=== PATIENT | male | born 1960 | race Caucasian/White ===

== ENCOUNTER 2021-03-26 15:54 | Emergency (ER) | payer OTHER, SELFPAY ==
--- NOTE | ~2021-03-26 | XR_ITS ---
EXAMINATION: XR lumbar spine 2-3V DATE: 03/26/2021 17:38 INDICATION: Low back pain TECHNIQUE: Anteroposterior and lateral views of the lumbar spine, and cone-down lateral view of the l umbosacral junction were obtained. COMPARISON: 12/30/2014 FINDINGS: There is unchanged mild chronic anterior wedging at T12 and L1. No acute fracture is identi fied. Bone alignment is normal. There is chronic mild loss of intervertebral disc space height at L4- 5 and L5-S1. Small degenerative osteophytes project from the anterior endplates of multiple vertebral bodies. IMPRESSION: 1. Mild lumbar spondylosis without acute findings or significant interval change. Reviewed, dictated and finalized at location F. ECTOR AUTOMATIC TYPEWRITER IMPRESSION: 1. Mild lumbar spondylosis without acute findings or significant interval resendiz eAlessandra
--- NOTE | ~2021-03-26 | XR_ITS ---
EXAMINATION: XR thoracic spine 2V DATE: 03/26/2021 17:38 INDICATION: Back pain TECHNIQUE: AP and lateral views of the thoracic spine are obtained COMPARISON: 07/10/2011, 12/30/2014 FINDINGS: There is unchanged mild loss of vertebral body height at T12 and L1. No acute fracture is i dentified. Bone alignment is normal. There is mild loss of intervertebral disc space height throughou t the thoracic spine. Small degenerative osteophytes project from the anterior endplates of multiple vertebral bodies. IMPRESSION: 1. Mild thoracic spondylosis without acute findings or significant interval change. Reviewed, dictated and finalized at location F. LE DEVELOPER IMPRESSION: 1. Mild thoracic spondylosis without acute findings or significant interval thomas cabrera.
[2021-03-26 16:07] VITALS: BP 162/96; PULSE 88; RESP 16; TEMP 36.2; O2SAT 98
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
[2021-03-26] MEDS: CYCLOBENZAPRINE HCL 10 MG TABLET PO (17:16)
[2021-03-26] MEDS: HYDROcodone/acetaminophen (*CRX) 5-325 MG TABLET 1 TAB PO (17:16)
[2021-03-26 18:20] VITALS: BP 145/77; PULSE 85; RESP 18; TEMP 36.1; O2SAT 98
== END 2021-03-26 18:20 | disposition home or self-care (01) ==
LOC: ANHED 17:25
PROVIDERS: Emergency Provider Emergency Medicine; PCP Physician Assistant
DX: S29.012A Strain of muscle and tendon of back wall of thorax, initial encounter (principal); S32.012A Unstable burst fracture of first lumbar vertebra, initial encounter for closed fracture; M47.814 Spondylosis without myelopathy or radiculopathy, thoracic region; M47.816 Spondylosis without myelopathy or radiculopathy, lumbar region; V43.52XA Car driver injured in collision with other type car in traffic accident, initial encounter
CPT/HCPCS: 72070; 72100; 99283; A9270

== ENCOUNTER 2022-03-28 11:27 | Emergency (ER) | payer OTHER, SELFPAY ==
[2022-03-28 11:29] VITALS: BP 172/104; PULSE 109; RESP 18; TEMP 36.8; O2SAT 99
[2022-03-28] MEDS: HYDROcodone/acetaminophen (*CRX) 5-325 MG TABLET 1 TAB PO (12:45)
--- NOTE | 2022-03-28 12:45 | ED.DENTAL ---
HPI - Dental/Oral General Chief complaint: Dental/Oral Stated complaint: Tooth Abcess Time Seen by Provider: 03/28/22 12:02 History of Present Illness HPI Narrative: Patient is a 61-year-old male who presents ER with right-sided dental pain. Right lower jaw. Began yesterday and worsened this morning when he woke up. No swelling. No difficulty breathing or swallowing. He has increased pain with eating. Located tooth #30 there is fracture. Related Data Allergies Allergy/AdvReac Type Severity Reaction Status Date / Time No Known Allergies Allergy Verified 03/28/22 11:32 Review of Systems Constitutional: Constitutional: Denies chills, Denies fatigue and Denies fever(s) ENT: Denies dysphagia, Denies nasal congestion and Denies sore throat Comments: Dental pain PMFSH Past Medical History Medical History (Updated 03/28/22 @ 12:47 by Jose Roberto John MD) HTN (hypertension) Surgical History Surgical History (Updated 03/28/22 @ 12:46 by Jose Roberto John MD) No pertinent past surgical history Exam Narrative: GENERAL: Well-appearing, well-nourished, and in no acute distress. HEAD: Normocephalic, atraumatic. ENT: Mucous membranes moist. Tender at the base of tooth #30 without any facial swelling or fluctuant abscess noted. Tooth #30 is fractured. NECK: Supple. CHEST: Clear to auscultation. No respiratory distress. HEART: Regular rate and rhythm. No murmur heard. Normal peripheral pulses. EXTREMITIES: Normal range of motion. No edema. NEURO: Alert and oriented x3. PSYCH: Normal mood and affect. Course Course Emergency Course: Patient denies antibiotic allergy. Discharge home with Augmentin and some [place]. Vital Signs Vital signs: Vital Signs Temperature 98.2 F 03/28/22 11:29 Pulse Rate 109 H 03/28/22 11:29 Respiratory Rate 18 03/28/22 11:29 Blood Pressure 172/104 H 03/28/22 11:29 Pulse Oximetry 99 03/28/22 11:29 Oxygen Delivery Room Air 03/28/22 11:29 Temperature 98.2 F 03/28/22 11:29 Pulse Rate 109 H 03/28/22 11:29 Respiratory Rate 18 03/28/22 11:29 Blood Pressure 172/104 H 03/28/22 11:29 Pulse Oximetry 99 03/28/22 11:29 Oxygen Delivery Room Air 03/28/22 11:29 Discharge Plan Discharge Clinical Impression: Toothache Patient Disposition: Home, Self-Care Condition: Stable Instructions: Antibiotic Form, Toothache (ED) Additional Instructions: Find a dentist to follow-up with. Return to the ER if you cannot breathe, you cannot swallow, you have worsening pain/facial swelling. Prescriptions: New hydrocodone-acetaminophen 5-325 mg tablet 1 tablet PO Q6H PRN (Reason: pain) Qty: 8 0RF amoxicillin-pot clavulanate 875-125 mg tablet 1 tablet PO Q12H Qty: 20 0RF No Action cyclobenzaprine 10 mg tablet 10 mg PO TID PRN (Reason: muscle spasm) Qty: 20 0RF cyclobenzaprine 10 mg tablet 10 mg PO TID PRN (Reason: muscle spasm) Qty: 20 0RF Follow-up/Referrals: Umair,COLTON Balderas [Primary Care Provider] -
== END 2022-03-28 13:25 | disposition home or self-care (01) ==
PROVIDERS: Emergency Provider Emergency Medicine; PCP Physician Assistant
DX: K08.89 Other specified disorders of teeth and supporting structures (principal)
CPT/HCPCS: 99283; A9270

== ENCOUNTER 2024-04-26 12:57 | Emergency (ER) | payer OTHER, SELFPAY ==
--- NOTE | ~2024-04-26 | XR_ITS ---
EXAMINATION: XR knee RT min 4V DATE: 04/26/2024 13:27 INDICATION: Anterior right knee pain. Injury. TECHNIQUE: 5 views of right knee were obtained. COMPARISON: None. FINDINGS: Alignment is normal. No fracture. There is mild tricompartmental osteoarthritis. No knee quentin int effusion. IMPRESSION: 1. Mild right knee osteoarthritis. Reviewed, dictated and finalized at location A. MACHINE OPERATOR
--- NOTE | ~2024-04-26 | CT_ITS ---
EXAMINATION: CT knee RT wo con DATE: 04/26/2024 15:57 INDICATION: Anterior right knee pain post fall TECHNIQUE: High resolution computed tomography (CT) of the right knee was performed without intraveno us contrast. Additional sagittal and coronal reconstructions were performed. Automated exposure contr ol and iterative reconstruction technique were employed. The dose-length product was 635.40 mGy-cm. COMPARISON: None FINDINGS: Bone alignment is normal. No fracture. There are subarticular cystlike changes in all 3 compartments along the posterior medial aspect of the lateral tibial plateau, along the posterior weightbearing me dial femoral condyle and along the lateral patellar facet consistent with likely overlying high-grade chondromalacia. No right knee joint effusion. There is mild subcutaneous edema minimal soft tissue s welling anterior and anteromedial to the knee at the level of the patellar tendon. IMPRESSION: 1. No right knee joint effusion or acute osseous abnormality. 2. 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 Reviewed, dictated and finalized at location B. 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 No right knee joint effusion or acute osseous abnormality. 2. Regions of subarticular cystlike changes suggesting overlying high-grade cho ndral malacia in all 3 compartments of the knee.
[2024-04-26 13:14] VITALS: BP 158/84; PULSE 88; RESP 16; TEMP 36.6; O2SAT 98
--- OUTSIDE RECORDS SUMMARY | 2024-04-26 13:57 | XMS_ITS | Patient Health Summary ---
Author Organization [facility] Address [address] [place] [address] Care Team Providers Care Nuclear Powerplant Mechanic Name Role Phone Sary Solis MD Primary Care Provider [phone]- [phone] Note from [facility],non-owned Affiliates and Associated Physician Practices is amultiple site organization consisting of ambulatory clinics and hospital sitesin [place], [place], [place] and [place]. This disclosure is being madepursuant to the Care Everywhere program and may not contain all information available regarding this patient. Last updated 17.[facility] Allergies No known active allergies Medications Be aware that medications may not be up to date on this document. Always verify current medications with the patient. No known medications Social History Tobacco Use Types Packs/Day Years Used Date Smoking Tobacco: Never Smokeless Tobacco: Never Alcohol Use Standard Drinks/Week Comments Yes 0 (1 standard drink = 0.6 oz pur e alcohol) Sex and Gender Information Value Date Recorded Sex Assigned at Not on file Gender Identity Not on file Sexual Orientation Not on file Care Teams Nuclear Powerplant Mechanic Relationship Specialty Start Date End Date Sary Solis MD [address] [place] [id number] PCP - General 10/05/17
--- OUTSIDE RECORDS SUMMARY | 2024-04-26 13:57 | XMS_ITS | Clinical Summary ---
Author Organization [facility] Address [address] [place] [address] Care Team Providers Care Parachute Folder Name Role Phone Sary Solis MD Primary Care Provider [phone]- [phone] Source Comments [facility],non-owned Affiliates and Associated Physician Practices is amultiple site organization consisting of ambulatory clinics and hospital sitesin [place], [place], [place] and [place]. This disclosure is being madepursuant to the Care Everywhere program and may not contain all information available regarding this patient. Last updated 17.[facility] Allergies No known active allergies Medications Be [...] on file Sexual Orientation Not on file Plan of Treatment Health Maintenance Due Date Last Done Comments COLOGUARD (AGES 45-75) - COL ON CA SCREENING 1960 COLON MONITORING 1960 COLONOSCOPY - COLON CA SCREENING 1960 CT COLONOGRAPHY - COLON CA SCREENING 1960 Colorectal Cancer Screening 1960 FIT - COLON CA SCREENING 1960 FLEX SIG - COLON CA SCREENING 1960 LIPID TESTING 1960 HIV SCREENING 1975 HEPATITIS C SCREENING 04/30/1978 DTAP/TDAP/TD VACCINES (1 - Tdap) 1979 PNEUMOCOCCAL VACCINE 50+ (1 of 1 - PCV) 2010 ZOSTER VACCINE (1 of 2) 2010 COVID-19 VACCINE (2023-2 5 season) 2023 INFLUENZA VACCINE (#1) 2023 DEPRESSION SCREENING 03/29/2024 Respiratory Syncytial Virus (RSV) Vaccine Pt: or over 60 yrs (1 - 1-dose 75+ series) 2035 HEPATITIS B VACCINE Aged Out No longe r eligible based on patient's age to complete this topic HIB VACCINE Aged Out No longer eligi ble based on patient's age to complete this topic HPV VACCINE Aged Out No longer eligi ble based on patient's age to complete this topic MENINGOCOCCAL (Group B) VACCINE Aged Out No longer eligible based on patient's age to complete this topic MENINGOCOCCAL VACCINE Aged Out No george tomasa eligible based on patient's age to complete this topic PNEUMOCOCCAL VACCINE Aged Out No long er eligible based on patient's age to complete this topic Care Teams Parachute Folder Relationship Specialty Start Date End Date Sary Solis MD [address] [place] [address] PCP - General 10/05/17
--- OUTSIDE RECORDS SUMMARY | 2024-04-26 13:57 | XMS_ITS | Clinical Summary ---
Author Organization [facility] Address [address] [place] [address]. [place], [place] [id number] [place] [id number] Care Team Providers Care Cofounder Name Role Phone Unavailable Primary Care Provider Unavailabl e Social History Tobacco Use Types Packs/Day Years Used Date Smoking Tobacco: Never Assessed Sex and Gender Information Value Date Recorded Sex Assigned at Not on file Legal Sex Male 6:07 PM CDT Gender Identity Not on file Sexual Orientation Not on file Plan of Treatment Health Maintenance Due Date Last Done Comments Colorectal Cancer Screening Colonoscopy (10 Years) 1960 Annual Physical 1963 Hepatitis C 1978 DTaP, Tdap and Td Vaccines ( 1 - Tdap) 1979 Zoster Vaccines (1 of 2) 2010 COVID-19 Vaccine (2023-2 5 season) 2023 Influenza Adult (#1) 2023 RSV Immunization or 60+ Years (1 - 1-dose 75+ series) 2035 Meningococcal B Vaccine Aged Out No l onger eligible based on patient's age to complete this topic Meningococcal Vaccine Aged Out No george tomasa eligible based on patient's age to complete this topic Pneumococcal Vaccine: Pediat rics (0 to 5 Years) and At-Risk Patients (6 to 64 Years) Aged Out No longer eligible b ased on patient's age to complete this topic RSV Immunizations Under 20 Months Aged Out No longer eligible based on patient's age to complete this topic
--- OUTSIDE RECORDS SUMMARY | 2024-04-26 13:57 | XMS_ITS | Referral Summary ---
Author Organization [facility] [employer] Address [address] [place] [address] Care Team Providers Care Wind Turbine Blade Repair Technician Name Role Phone Sary oSlis MD Primary Care Provider [phone]- [phone] Source Comments [facility],non-owned Affiliates and Associated Physician Practices is amultiple site organization consisting of ambulatory clinics and hospital sitesin [place], [place], [place] and [place]. This disclosure is being madepursuant to the Care Everywhere program and may not contain all information available regarding this patient. Last updated 17.[facility] [employer] Allergies No known active allergies Medications Be [...] Orientation Not on file Plan of Treatment Not on file Care Teams Wind Turbine Blade Repair Technician Relationship Specialty Start Date End Date Sary Solis MD [address] [place] [address] [facility] - General 10/05/17
--- OUTSIDE RECORDS SUMMARY | 2024-04-26 13:57 | XMS_ITS | Referral Summary ---
Author Organization [facility] [address] [facility] Address [address] [place] [address] Care Team Providers Care Certified Endoscopy Technician Name Role Phone Sherrie Block Primary Care Provider [phone] Allergies No known active allergies Medications lisinopril-hydroCHL OROthiazide (ZESTORETIC) 20-25 mg per tabletIndications:E ssential hypertension Take 1 tablet by mouth daily 90 tablet 1 4 Active rosuvastatin (CRESTOR) 20 mg tabletIndications:M ixed hyperlipidemia Take 1 tablet (20 mg total) by mouth daily 90 tablet 1 4 Active amLODIPine (NORVASC) 5 mg tabletIndications:E ssential hypertension Take 1 tablet (5 mg total) by mouth daily 90 tablet 1 4 Active magnesium oxide (MAG-OX) 400 mg (241.3 mg elemental magnesium) tabletIndications:E ssential hypertension,Morbid obesity (HCC) Take 1 tablet (400 mg total) by mouth daily 90 tablet 1 4 Active Active Problems Problem Noted Date Diagnosed Date Medicare [facility] 11/21/2023 Assessment & Plan (11/21/2023 9:37 PM CDT): Encouraged healthy lifestyle, good nutrition and exercise. Encouraged Calcium and Vitamin D and weight bearing exercise for bone health. Reviewed immunizations. Reviewed age appropirate screenings. Medicare Wellness Documentation is completed within the chart EKG done today in the office and it was normal Prostate cancer screening 11/21/2023 Assessment & Plan (11/21/2023 9:36 PM CDT): Check PSA BMI 38.0-38.9,adult 03/11/2023 Assessment & Plan (11/11/2023 7:20 AM CDT): Discussed the patient's BMI. The BMI is above average. BMI management plan is completed. BMI Follow-up includes: nutrition counseling, exercise counseling and education provided. Assessment & Plan (03/11/2023 9:23 AM WOODWINDS TEACHER): Discussed the patient's BMI. The BMI is above average. BMI management plan is completed. BMI Follow-up includes: nutrition counseling, exercise counseling and education provided. Hypomagnesemia 03/11/2023 Assessment & Plan (11/21/2023 9:36 PM CDT): Check labs Assessment & Plan (03/11/2023 11:20 PM WOODWINDS TEACHER): Supplement Hyperglycemia 07/19/2022 Assessment & Plan (11/21/2023 9:35 PM CDT): Pre-diabetes/hyperglycemia is a precursor to Dm. Stressed importance of working on diet (decrease your simple sugars and one carbohydrate with each meal) and increase you exercise to achieve weight loss and this will help prevent you from progressing to diabetes. Check labs Assessment & Plan (03/11/2023 11:19 PM WOODWINDS TEACHER): Check labs Assessment & Plan (07/19/2022 9:45 PM CDT): Pre-diabetes/hyperglycemia is a precursor to Dm. Stressed importance of working on diet (decrease your simple sugars and one carbohydrate with each meal) and increase you exercise to achieve weight loss and this will help prevent you from progressing to diabetes. Morbid obesity 07/16/2022 Assessment & Plan (11/21/2023 9:35 PM CDT): Discussed the patient's BMI. The BMI is above average. BMI management plan is completed. BMI Follow-up includes: nutrition counseling, exercise counseling and education provided. Patient has an obesity-related condition (not limited to: hypertension, obstructive sleep apnea, osteoarthritis, hyperlipidemia, diabetes, etc.). Therefore, morbid obesity may be documented for patients with a BMI between 35.00-39.99. Assessment & Plan (03/11/2023 11:19 PM WOODWINDS TEACHER): Discussed the patient's BMI. The BMI is above average. BMI management plan is completed. BMI Follow-up includes: nutrition counseling, exercise counseling and education provided. Patient has an obesity-related condition (not limited to: hypertension, obstructive sleep apnea, osteoarthritis, hyperlipidemia, diabetes, etc.). Therefore, morbid obesity may be documented for patients with a BMI between 35.00-39.99. Assessment & Plan (07/16/2022 12:08 PM CDT): Discussed the patient's BMI. The BMI is above average. BMI management plan is completed. BMI Follow-up includes: nutrition counseling, exercise counseling and education provided. Mixed hyperlipidemia 03/24/2022 Assessment & Plan (11/21/2023 9:35 PM CDT): Encouraged patient to follow low fat/low chol diet like the Mediterranean diet. Increase good fats in the diet. Increase exercise. Monitor labs as needed. Continue Crestor 20 Assessment & Plan (03/11/2023 11:19 PM WOODWINDS TEACHER): Encouraged patient to follow low fat/low chol diet like the Mediterranean diet. Increase good fats in the diet. Increase exercise. Monitor labs as needed. Continue Crestor Assessment & Plan (07/19/2022 9:45 PM CDT): Encouraged patient to follow low fat/low chol diet like the Mediterranean diet. Increase good fats in the diet. Increase exercise. Monitor labs as needed. Continue Crestor Assessment & Plan (03/24/2022 9:44 PM WOODWINDS TEACHER): Encouraged patient to follow low fat/low chol diet like the Mediterranean diet. Increase good fats in the diet. Increase exercise. Monitor labs as needed. Start crestor. Reviewed risks benefits alternatives side effects and proper use. Will recheck CMP in 4 weeks. Fatigue 11/22/2021 Assessment & Plan (11/21/2023 9:35 PM CDT): Probably multifactorial. Check labs and followup to re-evaluate Assessment & Plan (03/11/2023 11:18 PM WOODWINDS TEACHER): Probably multifactorial. Check labs and followup to re-evaluate Assessment & Plan (07/19/2022 9:45 PM CDT): Probably multifactorial. Check labs and followup to re-evaluate Assessment & Plan (11/22/2021 7:04 PM CDT): Probably multifactorial. Check labs and followup to re-evaluate Essential hypertension 03/15/2019 Assessment & Plan (11/21/2023 9:35 PM CDT): Bp is stable/in acceptable range for any co-morbidities. Encouraged to limit sodium intake and exercise for weight control. Continue lisinopril hydrochlorothiazide 20/25 and amlodipine 5 mg Assessment & Plan (03/11/2023 11:17 PM WOODWINDS TEACHER): Bp is stable/in acceptable range for any co-morbidities. Encouraged to limit sodium intake and exercise for weight control. Continue lisinopril hydrochlorothiazide 20/25 amlodipine Assessment & Plan (07/19/2022 9:45 PM CDT): Bp is stable/in acceptable range for any co-morbidities. Encouraged to limit sodium intake and exercise for weight control. Continue lisinopril hydrochlorothiazide and amlodipine Assessment & Plan (03/24/2022 9:33 PM WOODWINDS TEACHER): Bp is stable/in acceptable range for any co-morbidities. Encouraged to limit sodium intake and exercise for weight control. Continue lisinopril hydrochlorothiazide 2024 in the a.m. amlodipine 5 mg in the p.m. Assessment & Plan (11/22/2021 7:02 PM CDT): BP is not controlled. Stressed importance of taking medications as prescribed. He is currently on lisinopril hydrochlorothiazide He states his home readings have always been high also. Will go ahead and add amlodipine 5 mg. He needs to get labs done. Encouraged to limit sodium intake and exercise for weight control. Follow-up in 2 weeks to reassess blood pressure. Reviewed signs and symptoms of stroke and heart attack as he runs high often. If this would occur he needs to immediately seek emergency care. He voices understanding. Assessment & Plan (02/23/2021 9:41 PM WOODWINDS TEACHER): Bp is stable/in acceptable range for any co-morbidities. Encouraged to limit sodium intake and exercise for weight control. Continue lisinopril and hydrochlorothiazide at 20/25 blood pressures upper end of normal. Encouraged to keep readings at home to monitor also. Assessment & Plan (11/22/2019 2:14 PM CDT): Bp is stable/in acceptable range for any co-morbidities. Encouraged to limit sodium intake and exercise for weight control. Continue lisinopril/HCTZ. Encouraged to followup 4 weeks to recheck for stability Assessment & Plan (03/26/2019 10:40 PM WOODWINDS TEACHER): Bp is uncontrolled. Discussed treatment options. Will start with lisinopril/HCTZ. Will need for him to get labs. Provided a location for [place] pay only. Encouraged to limit sodium intake and exercise for weight control. Resolved Problems Problem Noted Date Diagnosed Date Resolved Date Morbid obesity with BMI of 40.0-44.9, adult 03/11/2023 03/11/2023 BMI 40.0-44.9, adult 07/16/2022 023 Assessment & Plan (07/16/2022 12:08 PM CDT): Discussed the patient's BMI. The BMI is above average. BMI management plan is completed. BMI Follow-up includes: nutrition counseling, exercise counseling and education provided. ARDON (dyspnea on exertion) 05/05/2022 Abnormal EKG 05/05/2022 11/21/2023 Racing heart beat 03/24/2022 11/21/2023 Assessment & Plan (03/24/2022 9:36 PM WOODWINDS TEACHER): This is a significant, separately identifiable problem that was evaluated and managed on the same day as the wellness exam Racing heartbeat noted while trying to donate plasma. EKG in the office today revealed prolonged QT interval, otherwise essentially normal. Will plan referral to Cardiology. See prolonged QT interval Prolonged Q-T interval on ECG 03/10/2022 11/21/2023 Assessment & Plan (03/24/2022 9:35 PM WOODWINDS TEACHER): This is a significant, separately identifiable problem that was evaluated and managed on the same day as the wellness exam Prolonged QT interval noted on EKG. Patient noted increased heart rate while donating plasma. He has multiple risk factors including family history of coronary artery disease, obesity, hypertension, hyperlipidemia so recommend referral to Cardiology Reviewed with patient if he would have chest pain shortness a breath exertional symptoms or a syncopal event he is he is to immediately go to the ER for immediate evaluation. He verbalizes understanding and agrees with the plan. Diabetes mellitus screening 11/22/2021 03/24/2022 Assessment & Plan (11/22/2021 7:04 PM CDT): Check labs Colon cancer screening 11/22/202103/24 Assessment & Plan (11/22/2021 7:05 PM CDT): Patient has refused colon screening in the past. Discussed options today including colonoscopy versus Cologuard. Reviewed risks and benefits of both. Cologuard preferred. Order placed today BMI 40.0-44.9, adult 02/04/2021 021 Assessment & Plan (02/04/2021 10:10 AM WOODWINDS TEACHER): Obesity is unchanged. Discussed the patient's BMI. The BMI is above average. BMI management plan is completed. BMI Follow-up includes: nutrition counseling, exercise counseling and education provided. Morbid obesity with BMI of 40.0-44.9, adult 02/04/2021 07/16/2022 Assessment & Plan (03/24/2022 9:34 PM WOODWINDS TEACHER): Discussed the patient's BMI. The BMI is above average. BMI management plan is completed. BMI Follow-up includes: nutrition counseling, exercise counseling and education provided. Assessment & Plan (11/22/2021 7:03 PM CDT): Discussed the patient's BMI. The BMI is above average. BMI management plan is completed. BMI Follow-up includes: nutrition counseling, exercise counseling and education provided. Assessment & Plan (02/23/2021 9:42 PM WOODWINDS TEACHER): Obesity is unchanged. Discussed the patient's BMI. The BMI is above average. BMI management plan is completed. BMI Follow-up includes: nutrition counseling, exercise counseling and education provided. Annual physical exam 11/22/2019 Assessment & Plan (03/11/2023 11:16 PM WOODWINDS TEACHER): Encouraged healthy lifestyle, good nutrition and exercise. Encouraged Calcium and Vitamin D and weight bearing exercise for bone health. Reviewed immunizations Reviewed age appropirate screenings. Assessment & Plan (03/24/2022 9:34 PM WOODWINDS TEACHER): Encouraged healthy lifestyle, good nutrition and exercise. Encouraged Calcium and Vitamin D and weight bearing exercise for bone health. Reviewed immunizations Reviewed age appropirate screenings. Assessment & Plan (02/23/2021 9:41 PM WOODWINDS TEACHER): Encouraged healthy lifestyle, good nutrition and exercise. Encouraged Calcium and Vitamin D and weight bearing exercise for bone health. Reviewed immunizations Reviewed age appropirate screenings. Assessment & Plan (11/22/2019 2:14 PM CDT): Encouraged healthy lifestyle, good nutrition and exercise. Encouraged Calcium and Vitamin D and weight bearing exercise for bone health. Reviewed immunizations Reviewed age appropirate screenings. Need for Tdap vaccination 11/22/2019 Assessment & Plan (11/22/2019 2:14 PM CDT): Updated in office today Prostate cancer screening 11/22/2019 Assessment & Plan (11/22/2021 7:03 PM CDT): Check labs Assessment & Plan (11/22/2019 2:14 PM CDT): Check labs Colon cancer screening declined 11/22/2019 11/22/2021 Assessment & Plan (11/22/2021 7:03 PM CDT): Patient refuses colon cancer screening Assessment & Plan (02/23/2021 9:42 PM WOODWINDS TEACHER): Patient denies colon cancer screening. Reviewed importance of screening. Pt voiced understanding. Assessment & Plan (11/22/2019 2:15 PM CDT): Reviewed importance of screening. Pt voiced understanding. Diabetes mellitus screening 03/26/2019 02/04/2021 Assessment & Plan (11/22/2019 2:14 PM CDT): Check labs Assessment & Plan (03/26/2019 10:41 PM WOODWINDS TEACHER): Check labs Lipid screening 03/26/2019 03/24/2022 Assessment & Plan (11/22/2021 7:03 PM CDT): Check labs Assessment & Plan (11/22/2019 2:14 PM CDT): Check labs Assessment & Plan (03/26/2019 10:41 PM WOODWINDS TEACHER): Check labs BMI 40.0-44.9, adult 03/15/2019 021 Assessment & Plan (11/22/2019 2:14 PM CDT): Obesity is unchanged. Discussed the patient's BMI. The BMI is above average. BMI management plan is completed. BMI Follow-up includes: nutrition counseling, exercise counseling and education provided. Assessment & Plan (03/15/2019 2:31 PM WOODWINDS TEACHER): Obesity is unchanged. Discussed the patient's BMI. The BMI is above average. BMI management plan is completed. BMI Follow-up includes: nutrition counseling, exercise counseling and education provided. Morbid obesity (CMS/HCC) 03/15/201911/2020 Assessment & Plan (02/04/2021 10:10 AM WOODWINDS TEACHER): Obesity is unchanged. Discussed the patient's BMI. The BMI is above average. BMI management plan is completed. BMI Follow-up includes: nutrition counseling, exercise counseling and education provided. Assessment & Plan (11/22/2019 2:14 PM CDT): Obesity is unchanged. Discussed the patient's BMI. The BMI is above average. BMI management plan is completed. BMI Follow-up includes: nutrition counseling, exercise counseling and education provided. Assessment & Plan (03/15/2019 2:31 PM WOODWINDS TEACHER): Obesity is unchanged. Discussed the patient's BMI. The BMI is above average. BMI management plan is completed. BMI Follow-up includes: nutrition counseling, exercise counseling and education provided. Body mass index (BMI) 40.0-44.9, adult 07/26/2017 07/16/2022 Morbid obesity 07/26/2017 07/16/2022 Immunizations Name Administration Dates Next Due Influenza, Trivalent, Preser vative Free, Intramuscular 01/04/2024 Influenza, Unspecified 12/28/2022,2021(Deferred: Patient Refused),03/10/2022(Deferred: Patient Refused),12/29/2021,04/30/2021(Deferre d: Patient Refused),03/15/2019(Deferred: Patient Refused),12/27/2017(Deferred: Patient Refused) Tdap 11/22/2019 Social History Tobacco Use Types Packs/Day Years Used Date Smoking Tobacco: Never Smokeless Tobacco: Never Tobacco Cessation:Counseling Given: Not Answered Alcohol Use Standard Drinks/Week Comments Yes 0 (1 standard drink = 0.6 oz pur e alcohol) AUDIT-C Answer Date Recorded Q1: How often do you have a drink containing alc ohol? 2-3 times a week 07/16/2022 Q2: How many drinks containi ng alcohol do you have on a typical day when you are drinking? 3 or 4 07/16/2022 Q3: How often do you have si x or more drinks on one occasion? 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 Not on file Not on file Not on file Last Filed Vital Signs Vital Sign Reading Time Taken Comments Blood Pressure 138/98 11/11/2023 7:15 AM CDT Pulse 86 11/11/2023 7:15 AM CDT Temperature 36.4 ??C (97.6 ??F) 11/11/2023 7:15 AM CD T Respiratory Rate 16 03/10/2022 11:2 3 AM WOODWINDS TEACHER Oxygen Saturation 96% 11/11/2023 7:15 AM CDT Inhaled Oxygen Concentration - - Weight 121.2 kg (267 lb 4.8 oz) 11/11/2023 7:15 AM CDT Height 177.8 cm (5' 10 ) 11/11/2023 7:15 AM CDT Body Mass Index 38.35 11/11/2023 7:15 AM CDT Plan of Treatment Not on file Procedures Procedure Name Priority Date/Time Associated Diagnosis Comments PSA SCREEN Routine 11/27/2021 7:46 AM CDT Prostate cancer screening STOOL DNA ? COLOGUARD Routine 11/18/2021 8:13 AM CDT Colon cancer screening HEPATITIS PANEL, ACUTE Routine 07/26/2017 8:01 AM CDT from Last 3 Months or Most Recently Relevant to Health Maintenance Results * PSA screen (11/27/2021 7:46 AM CDT) PSA 0.25 < OR = 4.00 ng/mL [employer] Comment: The total PSA value from this assay system is standardized against the WHO standard. The test result will be approximately 20% lower when compared to the equimolar-standardized total PSA (Tessy Phillip). Comparison of serial PSA results should be interpreted with this fact in mind. This test was performed using the Siemens chemiluminescent method. Values obtained from different assay methods cannot be used interchangeably. PSA levels, regardless of value, should not be interpreted as absolute evidence of the presence or absence of disease. Blood specimen (specimen) 11/27/2021 7:46 AM CDT 11/27/2021 7:48 AM CDT Sherrie SEGURA LAB BLOOD ORDERABLES Final Result [facility] [address] [place] [address] * Stool DNA - Cologuard (11/18/2021 8:13 AM CDT) Pathologist [facility] Stool DNA - Cologuard Negative Negative [email or web address] (CLIA #:[id number]) Comment: NEGATIVE TEST RESULT. A negative Cologuard result indicates a low likelihood that a colorectal cancer (CRC) or advanced adenoma (adenomatous polyps with more advanced pre-malignant features) ??is present. The chance that a person with a negative Cologuard test has a colorectal cancer is less than 1 in 1500 (negative predictive value >99.9%) or has an ??advanced adenoma is less than ??5.3% (negative predictive value 94.7%). These data are based on a prospective cross-sectional study of 10,000 individuals at average risk for colorectal cancer who were screened with both Cologuard and colonoscopy. (Belinda Hendricks al, N Engl J Med 2014;370(14):1286- 1297) The normal value (reference range) for this assay is negative. COLOGUARD RE-SCREENING RECOMMENDATION: Periodic colorectal cancer screening is an important part of preventive healthcare for asymptomatic individuals at average risk for colorectal cancer. ??Following a negative Cologuard result, the [place] [employer] Society and U.S. Multi-Society Task Force screening guidelines recommend a Cologuard re-screening interval of 3 years. References: [place] [employer] Guideline for Colorectal Cancer Screening: https://www.cancer.org/cancer/lndgi-huggvl-xzrkel/yulvdzdma-crxoqilim-mnjfoaa/ac s-rec ommendations.html.; Fernando DK, Mayuri CR, Darius TorresK, Colorectal Cancer Screening: Recommendations for Physicians and Patients from the U.S. Multi-Society Task Force on Colorectal Cancer Screening , Am J Gastroenterology 2017; 112:1154-9750. TEST DESCRIPTION: Composite algorithmic analysis of stool DNA-biomarkers with hemoglobin immunoassay. ?? Quantitative values of individual biomarkers are not reportable and are not associated with individual biomarker result reference ranges. Cologuard is intended for colorectal cancer screening of adults of either sex, 45 years or older, who are at average-risk for colorectal cancer (CRC). Cologuard has been approved for use by the U.S. FDA. The performance of Cologuard was established in a cross sectional study of average-risk adults aged 50-84. Cologuard performance in patients ages 45 to 49 years was estimated by sub-group analysis of near-age groups. Colonoscopies performed for a positive result may find as the most clinically significant lesion: colorectal cancer [4.0%], advanced adenoma (including sessile serrated polyps greater than or equal to 1cm diameter) [20%] or non- advanced adenoma [31%]; or no colorectal neoplasia [45%]. These estimates are derived from a prospective cross-sectional screening study of 10,000 individuals at average risk for colorectal cancer who were screened with both Cologuard and colonoscopy. (Belinda Hendricks al, N Engl J Med 2014;370(14):7146-5027.) Cologuard may produce a false negative or false positive result (no colorectal cancer or precancerous polyp present at colonoscopy follow up). A negative Cologuard test result does not guarantee the absence of CRC or advanced adenoma (pre-cancer). The current Cologuard screening interval is every 3 years. ([place] [employer] Society and U.S. Multi-Society Task Force). Cologuard performance data in a 10,000 patient pivotal study using colonoscopy as the reference method can be accessed at the following location: www.CaseReader.com/results. Additional description of the Cologuard test process, warnings and precautions can be found at www.[employer]. Stool 11/18/2021 8:13 AM CDT 11/19/2021 4:05 PM CDT us Sherrie SEGURA LAB BODY FLUIDS AND STOOLS ORDERABLES Final Result Performing Organization Address [facility] Co de Phone Number [facility] (CLIA #:[id number]) [place] [address] * Hepatitis panel, acute (07/26/2017 8:01 AM CDT) Hep A IgM NON-REACTI VE NON-REACTI VE [facility] HISTORICAL RESULTS HepBsAg NON-REACTI VE NON-REACTI VE [facility] HISTORICAL RESULTS Hep B core IgM NON-REACTI VE NON-REACTI VE [facility] HISTORICAL RESULTS Hep C Ab NON-REACTI VE NON-REACTI VE [facility] HISTORICAL RESULTS SIGNAL TO CUT-OFF 0.07 <1.00 [facility] HISTORICAL RESULTS 07/26/2017 8:01 AM CDT 07/27/2017 11:00 AM CDT Narrative [facility] HISTORICAL RESULTS - 07/27/2017 10:37 AM CDT 0; 0; 0 FASTING:YES FASTING: YES PERFORMING LAB: [place], [facility] [address] [address] [id number] Ulises Meyers D.O., MPH us Ousmane Solis MD LAB MICROBIOLOGY - GE NERAL ORDERABLES Final Result Performing Organization Address [facility] Co de Phone Number [facility] HISTORICAL RESULTS from Last 3 Months or Most Recently Relevant to Health Maintenance Insurance [facility] [employer] PPO Care Teams Certified Endoscopy Technician Relationship Specialty Start Date End Date Sherrie Block PA [facility] [phone] PCP - General Internal Medicine 03/08/19
--- OUTSIDE RECORDS SUMMARY | 2024-04-26 13:57 | XMS_ITS | Clinical Summary ---
Author Organization [facility] Address [address] [place] [address] Care Team Providers Care Supervisor Electronic Coils Name Role Phone Sherrie Block Primary Care Provider [phone] Allergies No known active allergies Medications lisinopril-hydroCHL [...] Problems Problem Noted Date Diagnosed Date [facility] 11/21/2023 Assessment & Plan (11/21/2023 [...] provided. Assessment & Plan (03/11/2023 9:23 AM CARPENTER [employer]YPE): Discussed the patient's BMI. The BMI is above average. BMI management plan is completed. BMI Follow-up includes: nutrition counseling, exercise counseling and education provided. Hypomagnesemia 03/11/2023 Assessment & Plan (11/21/2023 9:36 PM CDT): Check labs Assessment & Plan (03/11/2023 11:20 PM CARPENTER PROTOTYPE): Supplement Hyperglycemia 07/19/2022 Assessment & Plan (11/21/2023 9:35 PM CDT): Pre-diabetes/hyperglycemia is a precursor to Dm. Stressed importance of working on diet (decrease your simple sugars and one carbohydrate with each meal) and increase you exercise to achieve weight loss and this will help prevent you from progressing to diabetes. Check labs Assessment & Plan (03/11/2023 11:19 PM CARPENTER PROTOTYPE): Check labs Assessment & Plan (07/19/2022 9:45 [...] 35.00-39.99. Assessment & Plan (03/11/2023 11:19 PM CARPENTER PROTOTYPE): Discussed the patient's BMI. The BMI is [...] 20 Assessment & Plan (03/11/2023 11:19 PM CARPENTER PROTOTYPE): Encouraged patient to follow low fat/low chol [...] Crestor Assessment & Plan (03/24/2022 9:44 PM CARPENTER PROTOTYPE): Encouraged patient to follow low fat/low chol [...] re-evaluate Assessment & Plan (03/11/2023 11:18 PM CARPENTER PROTOTYPE): Probably multifactorial. Check labs and followup to [...] mg Assessment & Plan (03/11/2023 11:17 PM CARPENTER PROTOTYPE): Bp is stable/in acceptable range for any co-morbidities. Encouraged to limit sodium intake and exercise for weight control. Continue lisinopril hydrochlorothiazide 20/25 amlodipine Assessment & Plan (07/19/2022 9:45 PM CDT): Bp is stable/in acceptable range for any co-morbidities. Encouraged to limit sodium intake and exercise for weight control. Continue lisinopril hydrochlorothiazide and amlodipine Assessment & Plan (03/24/2022 9:33 PM CARPENTER PROTOTYPE): Bp is stable/in acceptable range for any [...] understanding. Assessment & Plan (02/23/2021 9:41 PM CARPENTER PROTOTYPE): Bp is stable/in acceptable range for any [...] stability Assessment & Plan (03/26/2019 10:40 PM CARPENTER PROTOTYPE): Bp is uncontrolled. Discussed treatment options. Will [...] 11/21/2023 Assessment & Plan (03/24/2022 9:36 PM CARPENTER PROTOTYPE): This is a significant, separately identifiable problem that was evaluated and managed on the same day as the wellness exam Racing heartbeat noted while trying to donate plasma. EKG in the office today revealed prolonged QT interval, otherwise essentially normal. Will plan referral to Cardiology. See prolonged QT interval Prolonged Q-T interval on ECG 03/10/2022 11/21/2023 Assessment & Plan (03/24/2022 9:35 PM CARPENTER PROTOTYPE): This is a significant, separately identifiable problem [...] 021 Assessment & Plan (02/04/2021 10:10 AM CARPENTER PROTOTYPE): Obesity is unchanged. Discussed the patient's BMI. The BMI is above average. BMI management plan is completed. BMI Follow-up includes: nutrition counseling, exercise counseling and education provided. Morbid obesity with BMI of 40.0-44.9, adult 02/04/2021 07/16/2022 Assessment & Plan (03/24/2022 9:34 PM CARPENTER PROTOTYPE): Discussed the patient's BMI. The BMI is above average. BMI management plan is completed. BMI Follow-up includes: nutrition counseling, exercise counseling and education provided. Assessment & Plan (11/22/2021 7:03 PM CDT): Discussed the patient's BMI. The BMI is above average. BMI management plan is completed. BMI Follow-up includes: nutrition counseling, exercise counseling and education provided. Assessment & Plan (02/23/2021 9:42 PM CARPENTER PROTOTYPE): Obesity is unchanged. Discussed the patient's BMI. The BMI is above average. BMI management plan is completed. BMI Follow-up includes: nutrition counseling, exercise counseling and education provided. Annual physical exam 11/22/2019 Assessment & Plan (03/11/2023 11:16 PM CARPENTER PROTOTYPE): Encouraged healthy lifestyle, good nutrition and exercise. Encouraged Calcium and Vitamin D and weight bearing exercise for bone health. Reviewed immunizations Reviewed age appropirate screenings. Assessment & Plan (03/24/2022 9:34 PM CARPENTER PROTOTYPE): Encouraged healthy lifestyle, good nutrition and exercise. Encouraged Calcium and Vitamin D and weight bearing exercise for bone health. Reviewed immunizations Reviewed age appropirate screenings. Assessment & Plan (02/23/2021 9:41 PM CARPENTER PROTOTYPE): Encouraged healthy lifestyle, good nutrition and exercise. [...] screening Assessment & Plan (02/23/2021 9:42 PM CARPENTER PROTOTYPE): Patient denies colon cancer screening. Reviewed importance of screening. Pt voiced understanding. Assessment & Plan (11/22/2019 2:15 PM CDT): Reviewed importance of screening. Pt voiced understanding. Diabetes mellitus screening 03/26/2019 02/04/2021 Assessment & Plan (11/22/2019 2:14 PM CDT): Check labs Assessment & Plan (03/26/2019 10:41 PM CARPENTER PROTOTYPE): Check labs Lipid screening 03/26/2019 03/24/2022 Assessment & Plan (11/22/2021 7:03 PM CDT): Check labs Assessment & Plan (11/22/2019 2:14 PM CDT): Check labs Assessment & Plan (03/26/2019 10:41 PM CARPENTER PROTOTYPE): Check labs BMI 40.0-44.9, adult 03/15/2019 021 Assessment & Plan (11/22/2019 2:14 PM CDT): Obesity is unchanged. Discussed the patient's BMI. The BMI is above average. BMI management plan is completed. BMI Follow-up includes: nutrition counseling, exercise counseling and education provided. Assessment & Plan (03/15/2019 2:31 PM CARPENTER PROTOTYPE): Obesity is unchanged. Discussed the patient's BMI. The BMI is above average. BMI management plan is completed. BMI Follow-up includes: nutrition counseling, exercise counseling and education provided. Morbid obesity (CMS/HCC) 03/15/201911/2020 Assessment & Plan (02/04/2021 10:10 AM CARPENTER PROTOTYPE): Obesity is unchanged. Discussed the patient's BMI. [...] provided. Assessment & Plan (03/15/2019 2:31 PM CARPENTER PROTOTYPE): Obesity is unchanged. Discussed the patient's BMI. [...] Refused),03/15/2019(Deferred: Patient Refused),12/27/2017(Deferred: Patient Refused) Tdap 11/22/2019 Surgical History Surgery Date Site/Laterality Comments DISCECTOMY DISCECTOMY 03/29/1996 - 03/28/1997 Medical History Medical History Date Comments Hypertension Ruptured disc, cervical Family History Medical History Relation Name Comments Heart disease Father Hyperlipidemia Father Stroke Father COPD Mother Relation Name Status Comments Father Mother Social History Tobacco Use Types Packs/Day Years [...] on file Legal Sex Male 6:42 PM CARPENTER PROTOTYPE Gender Identity Not on file Sexual Orientation Not on file Occupation Industry Job Start Date Job End Date [employer] Not on file Not on file Not on file retired Not on file Not on file Not on file Obstetrics History Last Filed Vital Signs Vital Sign Reading Time Taken Comments Blood Pressure 138/98 11/11/2023 7:15 AM CDT Pulse 86 11/11/2023 7:15 AM CDT Temperature 36.4 ??C (97.6 ??F) 11/11/2023 7:15 AM CD T Respiratory Rate 16 03/10/2022 11:2 3 AM CARPENTER PROTOTYPE Oxygen Saturation 96% 11/11/2023 7:15 AM CDT Inhaled Oxygen Concentration - - Weight 121.2 kg (267 lb 4.8 oz) 11/11/2023 7:15 AM CDT Height 177.8 cm (5' 10 ) 11/11/2023 7:15 AM CDT Body Mass Index 38.35 11/11/2023 7:15 AM CDT Plan of Treatment Health Maintenance Due Date Last Done Comments Hepatitis B Screening 1978 Zoster Vaccine (1 of 2) 2010 Prostate Cancer Screening-PSA 11/28/2023 11/27/2021 Depression Screening 11/10/2024 11/11/2023, 03/11/2023, 07/16/2022, Additional history exists Regular Well Visit/Exam 18-64 11/10/2024 11/11/2023, 03/11/2023, 03/10/2022, Additional history exists Colon Cancer Screening-DNA Stool 11/18/2024 11/18/2021 DTaP/Tdap/Td Vaccine (2 - Td or Tdap) 11/21/2029 11/22/2019 Hepatitis C Screening Completed 07/26/2017 Colon Cancer Screening-FIT Discontinued 11/18/2021 Influenza Vaccine Completed 01/04/2024, , 12/28/2022, Additional history exists Pneumococcal vaccine <65 Aged Out No longer eligible based on patient's age to complete this topic Procedures Procedure Name Priority Date/Time Associated Diagnosis [...] PSA 0.25 < OR = 4.00 ng/mL [employer] Comment: The total PSA value from this assay system is standardized against the WHO standard. The test result will be approximately 20% lower when compared to the equimolar-standardized total PSA (Tessy [place]). Comparison of serial PSA results should be interpreted with this fact in mind. This test was performed using the Siemens chemiluminescent method. Values obtained from different assay methods cannot be used interchangeably. PSA levels, regardless of value, should not be interpreted as absolute evidence of the presence or absence of disease. Blood specimen (specimen) 11/27/2021 7:46 AM CDT 11/27/2021 7:48 AM CDT us Sherrie SEGURA LAB BLOOD ORDERABLES Final Result [facility] [employer] [address] [id number] * Stool DNA - Cologuard (11/18/2021 8:13 AM CDT) Stool DNA - Cologuard Negative Negative [employer] (CLIA #:[id number]) Comment: NEGATIVE TEST RESULT. A negative Cologuard [...] screened with both Cologuard and colonoscopy. (Belinda Corey et al, N Engl J Med 2014;370(14):1286- 1297) The normal value (reference range) for this assay is negative. COLOGUARD RE-SCREENING RECOMMENDATION: Periodic colorectal cancer screening is an important part of preventive healthcare for asymptomatic individuals at average risk for colorectal cancer. ??Following a negative Cologuard result, the [place] Cancer Society and U.S. Multi-Society Task Force screening guidelines recommend a Cologuard re-screening interval of 3 years. References: [place] Cancer Society Guideline for Colorectal Cancer Screening: https://www.cancer.org/cancer/hotrb-hzoibn-hfoiek/nxmslertr-rmpvjknej-wtxmeso/ac s-rec ommendations.html.; Fernando VALLECILLO, Mayuri CR, Darius TorresK, Colorectal Cancer Screening: Recommendations for Physicians and Patients from the U.S. Multi-Society Task Force on Colorectal Cancer Screening , Am J Gastroenterology 2017; 112:9859-6137. TEST DESCRIPTION: Composite algorithmic analysis of stool [...] screened with both Cologuard and colonoscopy. (Belinda Corey et al, N Engl J Med 2014;370(14):9432-4060.) Cologuard may produce a false negative or false positive result (no colorectal cancer or precancerous polyp present at colonoscopy follow up). A negative Cologuard test result does not guarantee the absence of CRC or advanced adenoma (pre-cancer). The current Cologuard screening interval is every 3 years. ([place] Cancer Society and U.S. Multi-Society Task Force). Cologuard performance data in a 10,000 patient pivotal study using colonoscopy as the reference method can be accessed at the following location: www.Teamer.net/results. Additional description of the Cologuard test process, warnings and precautions can be found at www.cologuard.com. Stool 11/18/2021 8:13 AM CDT 11/19/2021 4:05 PM CDT us Sherrie SEGURA LAB BODY FLUIDS AND STOOLS ORDERABLES Final Result [employer] (CLIA #:[id number]) [address] [place] [address] * Hepatitis panel, acute (07/26/2017 8:01 AM CDT) Hep A IgM NON-REACTI VE NON-REACTI VE [facility] HISTORICAL RESULTS HepBsAg NON-REACTI VE [facility] Hep B core IgM NON-REACTI VE NON-REACTI VE [facility] HISTORICAL RESULTS Hep C Ab NON-REACTI VE NON-REACTI VE [facility] HISTORICAL RESULTS SIGNAL TO CUT-OFF 0.07 <[address] [facility] HISTORICAL RESULTS 07/26/2017 8:01 AM CDT 07/27/2017 11:00 AM CDT Narrative [facility] HISTORICAL RESULTS - 07/27/2017 10:37 AM CDT 0; 0; 0 FASTING:YES FASTING: YES PERFORMING LAB: [place], [facility] [address], [place] [address] Ulises Meyers D.O., MPH Ousmane Solis MD LAB MICROBIOLOGY - GE NERAL ORDERABLES Final Result [facility] HISTORICAL RESULTS from Last 3 Months or Most Recently Relevant to Health Maintenance Insurance [facility] [employer] PPO Care Teams Supervisor Electronic Coils Relationship Specialty Start Date End Date Sherrie Block PA [address] [facility] [address] [place] [address] PCP - General Internal Medicine 03/08/19
--- NOTE | 2024-04-26 15:27 | ED_ITS ---
HPI - General Adult General Chief complaint: Extremity Injury, Lower Stated complaint: fall, right knee injury Time Seen by Provider: 04/26/24 14:11 History of Present Illness HPI narrative: 63-year-old male presents to the emergency department for evaluation for right knee pain. Patient reports last week he went to the on the ground and suspects that he kneeled to quickly and injured his right knee. Patient states with palpation and with weight-bearing he has pain that radiates from medial right knee to lateral posterior knee. Patient denies any other pain or injury Related Data Allergies Allergy/AdvReac Type Severity Reaction Status Date / Time No Known Allergies Allergy Verified 03/28/22 11:32 Review of Systems Review of Systems: All systems reviewed & are unremarkable except as noted in HPI and below PMFSH Past Medical History Medical History (Updated 04/26/24 @ 16:44 by Nuno Barriga MD) HTN (hypertension) Surgical History Surgical History (Updated 03/28/22 @ 12:46 by Jose Roberto John MD) No pertinent past surgical history Exam Narrative: APPEARANCE: Well appearing, no pain, no distress, well-nourished. HEAD: normocephalic, atraumatic. EYES: PERRLA/EOMI, conjunctivae clear. NOSE: Normal no drainage EARS:TMS clear with good light reflex. THROAT: Pharynx clear, no exudate. NECK: Supple. No adenopathy, no masses. RESPIRATORY: Airway patent, respirations nonlabored. Clear to auscultation bilaterally, no rales, rhonchi, wheezing. CARDIOVASCULAR: Regular rate and rhythm without murmurs rubs or gallops. ABDOMINAL: Soft, nontender, nondistended, normal bowel sounds MUSCULOSKELETAL: Right knee tenderness to palpation and pain with ambulation NEURO: Alert. Cranial nerves II through XII intact. Grossly intact SKIN: Warm, dry. Normal Color Course Vital Signs Vital signs: Vital Signs Temperature 97.8 F 04/26/24 13:14 Pulse Rate 88 04/26/24 13:14 Respiratory Rate 16 04/26/24 13:14 Blood Pressure 158/84 H 04/26/24 13:14 Pulse Oximetry 98 04/26/24 13:14 Temperature 97.8 F 04/26/24 13:14 Pulse Rate 75 04/26/24 17:13 Respiratory Rate 18 04/26/24 17:13 Blood Pressure 132/74 04/26/24 17:13 Pulse Oximetry 98 04/26/24 17:13 Medical Decision Making MDM Narrative Medical decision making narrative: 63-year-old male presents emergency department for evaluation for right knee. X-rays negative for acute fracture. Patient does report increased pain with weight-bearing even with a negative x-ray. CT scan was ordered to evaluate for occult fracture specifically to be tibial plateau fracture. Patient was updated results of the workup. Patient was provided crutches and knee immobilizer for limited weight-bearing. Patient was encouraged of close follow-up with Orthopedics. All questions and concerns were addressed. Differential Diagnosis Differential Diagnosis: Knee contusion, internal derangement of the knee, but tibial plateau fracture, knee strain Vital Signs Vital Signs: Vital Signs Temperature 97.8 F 04/26/24 13:14 Pulse Rate 88 04/26/24 13:14 Respiratory Rate 16 04/26/24 13:14 Blood Pressure 158/84 H 04/26/24 13:14 Pulse Oximetry 98 04/26/24 13:14 Temperature 97.8 F 04/26/24 13:14 Pulse Rate 75 04/26/24 17:13 Respiratory Rate 18 04/26/24 17:13 Blood Pressure 132/74 04/26/24 17:13 Pulse Oximetry 98 04/26/24 17:13 Imaging Data Radiologist's impression: Impressions Knee X-Ray 04/26/24 13:27 IMPRESSION: 1. Mild right knee osteoarthritis. Knee CT 04/26/24 16:05 IMPRESSION: 1. No right knee joint effusion or acute osseous abnormality. 2. 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 Discharge Plan Discharge Clinical Impression: Injury of knee Patient Disposition: Home, Self-Care Condition: Stable Instructions: Antibiotic Form, Crutch Instructions (ED), Knee Pain (ED) Additional Instructions: Knee immobilizer for comfort. Crutches for limited weight-bearing. Tylenol and ibuprofen for pain control. Have close follow-up with her primary care physician also have close follow-up with Orthopedics. If you have any worsening symptoms then please call or return to the emergency department. Patient Language: Citizen Of [place] Prescriptions: No Action cyclobenzaprine 10 mg tablet 10 mg PO TID PRN (Reason: muscle spasm) Qty: 20 0RF cyclobenzaprine 10 mg tablet 10 mg PO TID PRN (Reason: muscle spasm) Qty: 20 0RF hydrocodone-acetaminophen 5-325 mg tablet 1 tablet PO Q6H PRN (Reason: pain) Qty: 8 0RF amoxicillin-pot clavulanate 875-125 mg tablet 1 tablet PO Q12H Qty: 20 0RF Follow-up/Referrals: Darnell De León MD [Physician] - Umair,COLTON Balderas [Primary Care Provider] - Stand Alone Forms: Work/School Release IP
--- OUTSIDE RECORDS SUMMARY | 2024-04-26 15:44 | XMS_ITS | Clinical Summary ---
Author Organization [facility] Address [address] [place] [address]. [place], [place] [id number] [place] [id number] Care Team Providers Care Sand Sifter Name Role Phone Unavailable Primary Care Provider [...]
--- OUTSIDE RECORDS SUMMARY | 2024-04-26 15:44 | XMS_ITS | Referral Summary ---
Author Organization [facility] [place] [facility] [facility] Address [address] [place] [address] Care Team Providers Care Software Designer Name Role Phone Sherrie Block Primary Care Provider +1- [phone] Allergies No known active allergies Medications lisinopril-hydroCHL [...] Problems Problem Noted Date Diagnosed Date Medicare [facility] [place] visit 11/21/2023 Assessment & Plan (11/21/2023 9:37 [...] provided. Assessment & Plan (03/11/2023 9:23 AM GRATED CHEESE MAKER): Discussed the patient's BMI. The BMI is above average. BMI management plan is completed. BMI Follow-up includes: nutrition counseling, exercise counseling and education provided. Hypomagnesemia 03/11/2023 Assessment & Plan (11/21/2023 9:36 PM CDT): Check labs Assessment & Plan (03/11/2023 11:20 PM GRATED CHEESE MAKER): Supplement Hyperglycemia 07/19/2022 Assessment & Plan (11/21/2023 9:35 PM CDT): Pre-diabetes/hyperglycemia is a precursor to Dm. Stressed importance of working on diet (decrease your simple sugars and one carbohydrate with each meal) and increase you exercise to achieve weight loss and this will help prevent you from progressing to diabetes. Check labs Assessment & Plan (03/11/2023 11:19 PM GRATED CHEESE MAKER): Check labs Assessment & Plan (07/19/2022 9:45 [...] 35.00-39.99. Assessment & Plan (03/11/2023 11:19 PM GRATED CHEESE MAKER): Discussed the patient's BMI. The BMI is [...] 20 Assessment & Plan (03/11/2023 11:19 PM GRATED CHEESE MAKER): Encouraged patient to follow low fat/low chol [...] Crestor Assessment & Plan (03/24/2022 9:44 PM GRATED CHEESE MAKER): Encouraged patient to follow low fat/low chol [...] re-evaluate Assessment & Plan (03/11/2023 11:18 PM GRATED CHEESE MAKER): Probably multifactorial. Check labs and followup to [...] mg Assessment & Plan (03/11/2023 11:17 PM GRATED CHEESE MAKER): Bp is stable/in acceptable range for any co-morbidities. Encouraged to limit sodium intake and exercise for weight control. Continue lisinopril hydrochlorothiazide 20/25 amlodipine Assessment & Plan (07/19/2022 9:45 PM CDT): Bp is stable/in acceptable range for any co-morbidities. Encouraged to limit sodium intake and exercise for weight control. Continue lisinopril hydrochlorothiazide and amlodipine Assessment & Plan (03/24/2022 9:33 PM GRATED CHEESE MAKER): Bp is stable/in acceptable range for any [...] understanding. Assessment & Plan (02/23/2021 9:41 PM GRATED CHEESE MAKER): Bp is stable/in acceptable range for any [...] stability Assessment & Plan (03/26/2019 10:40 PM GRATED CHEESE MAKER): Bp is uncontrolled. Discussed treatment options. Will [...] 11/21/2023 Assessment & Plan (03/24/2022 9:36 PM GRATED CHEESE MAKER): This is a significant, separately identifiable problem that was evaluated and managed on the same day as the wellness exam Racing heartbeat noted while trying to donate plasma. EKG in the office today revealed prolonged QT interval, otherwise essentially normal. Will plan referral to Cardiology. See prolonged QT interval Prolonged Q-T interval on ECG 03/10/2022 11/21/2023 Assessment & Plan (03/24/2022 9:35 PM GRATED CHEESE MAKER): This is a significant, separately identifiable problem [...] 021 Assessment & Plan (02/04/2021 10:10 AM GRATED CHEESE MAKER): Obesity is unchanged. Discussed the patient's BMI. The BMI is above average. BMI management plan is completed. BMI Follow-up includes: nutrition counseling, exercise counseling and education provided. Morbid obesity with BMI of 40.0-44.9, adult 02/04/2021 07/16/2022 Assessment & Plan (03/24/2022 9:34 PM GRATED CHEESE MAKER): Discussed the patient's BMI. The BMI is above average. BMI management plan is completed. BMI Follow-up includes: nutrition counseling, exercise counseling and education provided. Assessment & Plan (11/22/2021 7:03 PM CDT): Discussed the patient's BMI. The BMI is above average. BMI management plan is completed. BMI Follow-up includes: nutrition counseling, exercise counseling and education provided. Assessment & Plan (02/23/2021 9:42 PM GRATED CHEESE MAKER): Obesity is unchanged. Discussed the patient's BMI. The BMI is above average. BMI management plan is completed. BMI Follow-up includes: nutrition counseling, exercise counseling and education provided. Annual physical exam 11/22/2019 Assessment & Plan (03/11/2023 11:16 PM GRATED CHEESE MAKER): Encouraged healthy lifestyle, good nutrition and exercise. Encouraged Calcium and Vitamin D and weight bearing exercise for bone health. Reviewed immunizations Reviewed age appropirate screenings. Assessment & Plan (03/24/2022 9:34 PM GRATED CHEESE MAKER): Encouraged healthy lifestyle, good nutrition and exercise. Encouraged Calcium and Vitamin D and weight bearing exercise for bone health. Reviewed immunizations Reviewed age appropirate screenings. Assessment & Plan (02/23/2021 9:41 PM GRATED CHEESE MAKER): Encouraged healthy lifestyle, good nutrition and exercise. [...] screening Assessment & Plan (02/23/2021 9:42 PM GRATED CHEESE MAKER): Patient denies colon cancer screening. Reviewed importance of screening. Pt voiced understanding. Assessment & Plan (11/22/2019 2:15 PM CDT): Reviewed importance of screening. Pt voiced understanding. Diabetes mellitus screening 03/26/2019 02/04/2021 Assessment & Plan (11/22/2019 2:14 PM CDT): Check labs Assessment & Plan (03/26/2019 10:41 PM GRATED CHEESE MAKER): Check labs Lipid screening 03/26/2019 03/24/2022 Assessment & Plan (11/22/2021 7:03 PM CDT): Check labs Assessment & Plan (11/22/2019 2:14 PM CDT): Check labs Assessment & Plan (03/26/2019 10:41 PM GRATED CHEESE MAKER): Check labs BMI 40.0-44.9, adult 03/15/2019 021 Assessment & Plan (11/22/2019 2:14 PM CDT): Obesity is unchanged. Discussed the patient's BMI. The BMI is above average. BMI management plan is completed. BMI Follow-up includes: nutrition counseling, exercise counseling and education provided. Assessment & Plan (03/15/2019 2:31 PM GRATED CHEESE MAKER): Obesity is unchanged. Discussed the patient's BMI. The BMI is above average. BMI management plan is completed. BMI Follow-up includes: nutrition counseling, exercise counseling and education provided. Morbid obesity (CMS/HCC) 03/15/201911/2020 Assessment & Plan (02/04/2021 10:10 AM GRATED CHEESE MAKER): Obesity is unchanged. Discussed the patient's BMI. [...] provided. Assessment & Plan (03/15/2019 2:31 PM GRATED CHEESE MAKER): Obesity is unchanged. Discussed the patient's BMI. 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 Not on file Not on file Not on file Last Filed Vital Signs Vital Sign Reading Time Taken Comments Blood Pressure 138/98 11/11/2023 7:15 AM CDT Pulse 86 11/11/2023 7:15 AM CDT Temperature 36.4 ??C (97.6 ??F) 11/11/2023 7:15 AM CD T Respiratory Rate 16 03/10/2022 11:2 3 AM GRATED CHEESE MAKER Oxygen Saturation 96% 11/11/2023 7:15 AM CDT [...] PSA 0.25 < OR = 4.00 ng/mL [facility] Comment: The total PSA value from [...] Sherrie SEGURA LAB BLOOD ORDERABLES Final Result [facility] [address] [place] [address] * Stool DNA - Cologuard (11/18/2021 8:13 AM CDT) Pathologist [facility] Stool DNA - Cologuard Negative Negative [employer] (CLIA #:[id number]) Comment: NEGATIVE TEST RESULT. A negative Cologuard [...] cancer. ??Following a negative Cologuard result, the [place] Cancer Society and U.S. Multi-Society Task Force screening guidelines recommend a Cologuard re-screening interval of 3 years. References: [place] [employer] Guideline for Colorectal Cancer Screening: https://www.cancer.org/cancer/bkcxk-macrgg-vxpytr/etcgmyuiq-zgzsjlvax-mzjouop/ac s-rec ommendations.html.; Fernando DK, Mayuri CR, Draius TorresK, Colorectal Cancer Screening: Recommendations for Physicians and Patients from the U.S. Multi-Society Task Force on Colorectal Cancer Screening , Am J Gastroenterology 2017; 112:5548-4750. TEST DESCRIPTION: Composite algorithmic analysis of stool [...] (Belinda Hendricks al, N Engl J Med 2014;370(14):9509-6400.) Cologuard may produce a false negative or false positive result (no colorectal cancer or precancerous polyp present at colonoscopy follow up). A negative Cologuard test result does not guarantee the absence of CRC or advanced adenoma (pre-cancer). The current Cologuard screening interval is every 3 years. ([place] Cancer Society and U.S. Multi-Society Task Force). Cologuard performance data in a 10,000 patient pivotal study using colonoscopy as the reference method can be accessed at the following location: www.[employer].com/results. Additional description of the Cologuard test process, warnings and precautions can be found at www.colMedDayrd.fromAtoB. Stool 11/18/2021 8:13 AM CDT 11/19/2021 4:05 PM CDT us Sherrie SEGURA LAB BODY FLUIDS AND STOOLS ORDERABLES Final Result Performing Organization Address City/[facility] Co de Phone Number [facility] (CLIA #:[id number]) [place] [address] * Hepatitis panel, acute (07/26/2017 8:01 AM CDT) Hep A IgM NON-REACTI VE NON-REACTI VE [facility] HISTORICAL RESULTS HepBsAg NON-REACTI VE NON-REACTI VE [facility] HISTORICAL RESULTS Hep B core IgM NON-REACTI VE NON-REACTI VE [facility] HISTORICAL RESULTS Hep C Ab NON-REACTI VE NON-REACTI VE [facility] HISTORICAL RESULTS SIGNAL TO CUT-OFF 0.07 <1.00 [facility] HISTORICAL RESULTS 07/26/2017 8:01 AM CDT 07/27/2017 11:00 AM CDT Narrative [facility] HISTORICAL RESULTS - 07/27/2017 10:37 AM CDT 0; 0; 0 FASTING:YES FASTING: YES PERFORMING LAB: [place], [facility] [address] [address] Ulises Meyers D.O., MPH us Ousmane Solis MD LAB MICROBIOLOGY - GE NERAL ORDERABLES Final Result Performing Organization Address [facility] Co de Phone Number [facility] HISTORICAL RESULTS from Last 3 Months or Most Recently Relevant to Health Maintenance Insurance [facility] [employer] ADVANTAGE CHOICE PPO Care Teams Software Designer Relationship Specialty Start Date End Date Sherrie Block PA [facility] [phone] PCP - General Internal Medicine 03/08/19
--- OUTSIDE RECORDS SUMMARY | 2024-04-26 15:44 | XMS_ITS | Clinical Summary ---
Author Organization [facility] Address [address] [place] [address] Care Team Providers Care Lap Cutter Name Role Phone Sary Solis MD Primary Care Provider +1- [phone] Source Comments [facility],non-owned Affiliates and Associated Physician Practices is amultiple site organization consisting of ambulatory clinics and hospital sitesin [place], [place], [place] and [place]. This disclosure is being madepursuant to the Care Everywhere program and may not contain all information available regarding this patient. Last updated 17.[facility] Allergies No known active allergies Medications Be [...] age to complete this topic Care Teams Lap Cutter Relationship Specialty Start Date End Date Sary Solis MD [address] [place] [address] PCP - General 10/05/17
--- OUTSIDE RECORDS SUMMARY | 2024-04-26 15:44 | XMS_ITS | Clinical Summary ---
Author Organization [facility] [address] [facility] Address [address] [place] [address] Care Team Providers Care Security Monitor Name Role Phone Sherrie Block Primary Care Provider +1- [phone] Allergies No known active allergies Medications lisinopril-hydroCHL [...] Problems Problem Noted Date Diagnosed Date [facility] 11/21/2023 Assessment & Plan (11/21/2023 [...] provided. Assessment & Plan (03/11/2023 9:23 AM DIE PRESSER): Discussed the patient's BMI. The BMI is above average. BMI management plan is completed. BMI Follow-up includes: nutrition counseling, exercise counseling and education provided. Hypomagnesemia 03/11/2023 Assessment & Plan (11/21/2023 9:36 PM CDT): Check labs Assessment & Plan (03/11/2023 11:20 PM DIE PRESSER): Supplement Hyperglycemia 07/19/2022 Assessment & Plan (11/21/2023 9:35 PM CDT): Pre-diabetes/hyperglycemia is a precursor to Dm. Stressed importance of working on diet (decrease your simple sugars and one carbohydrate with each meal) and increase you exercise to achieve weight loss and this will help prevent you from progressing to diabetes. Check labs Assessment & Plan (03/11/2023 11:19 PM DIE PRESSER): Check labs Assessment & Plan (07/19/2022 9:45 [...] 35.00-39.99. Assessment & Plan (03/11/2023 11:19 PM DIE PRESSER): Discussed the patient's BMI. The BMI is [...] 20 Assessment & Plan (03/11/2023 11:19 PM DIE PRESSER): Encouraged patient to follow low fat/low chol [...] Crestor Assessment & Plan (03/24/2022 9:44 PM DIE PRESSER): Encouraged patient to follow low fat/low chol [...] re-evaluate Assessment & Plan (03/11/2023 11:18 PM DIE PRESSER): Probably multifactorial. Check labs and followup to [...] mg Assessment & Plan (03/11/2023 11:17 PM DIE PRESSER): Bp is stable/in acceptable range for any co-morbidities. Encouraged to limit sodium intake and exercise for weight control. Continue lisinopril hydrochlorothiazide 20/25 amlodipine Assessment & Plan (07/19/2022 9:45 PM CDT): Bp is stable/in acceptable range for any co-morbidities. Encouraged to limit sodium intake and exercise for weight control. Continue lisinopril hydrochlorothiazide and amlodipine Assessment & Plan (03/24/2022 9:33 PM DIE PRESSER): Bp is stable/in acceptable range for any [...] understanding. Assessment & Plan (02/23/2021 9:41 PM DIE PRESSER): Bp is stable/in acceptable range for any [...] stability Assessment & Plan (03/26/2019 10:40 PM DIE PRESSER): Bp is uncontrolled. Discussed treatment options. Will [...] 11/21/2023 Assessment & Plan (03/24/2022 9:36 PM DIE PRESSER): This is a significant, separately identifiable problem that was evaluated and managed on the same day as the wellness exam Racing heartbeat noted while trying to donate plasma. EKG in the office today revealed prolonged QT interval, otherwise essentially normal. Will plan referral to Cardiology. See prolonged QT interval Prolonged Q-T interval on ECG 03/10/2022 11/21/2023 Assessment & Plan (03/24/2022 9:35 PM DIE PRESSER): This is a significant, separately identifiable problem [...] 021 Assessment & Plan (02/04/2021 10:10 AM DIE PRESSER): Obesity is unchanged. Discussed the patient's BMI. The BMI is above average. BMI management plan is completed. BMI Follow-up includes: nutrition counseling, exercise counseling and education provided. Morbid obesity with BMI of 40.0-44.9, adult 02/04/2021 07/16/2022 Assessment & Plan (03/24/2022 9:34 PM DIE PRESSER): Discussed the patient's BMI. The BMI is above average. BMI management plan is completed. BMI Follow-up includes: nutrition counseling, exercise counseling and education provided. Assessment & Plan (11/22/2021 7:03 PM CDT): Discussed the patient's BMI. The BMI is above average. BMI management plan is completed. BMI Follow-up includes: nutrition counseling, exercise counseling and education provided. Assessment & Plan (02/23/2021 9:42 PM DIE PRESSER): Obesity is unchanged. Discussed the patient's BMI. The BMI is above average. BMI management plan is completed. BMI Follow-up includes: nutrition counseling, exercise counseling and education provided. Annual physical exam 11/22/2019 Assessment & Plan (03/11/2023 11:16 PM DIE PRESSER): Encouraged healthy lifestyle, good nutrition and exercise. Encouraged Calcium and Vitamin D and weight bearing exercise for bone health. Reviewed immunizations Reviewed age appropirate screenings. Assessment & Plan (03/24/2022 9:34 PM DIE PRESSER): Encouraged healthy lifestyle, good nutrition and exercise. Encouraged Calcium and Vitamin D and weight bearing exercise for bone health. Reviewed immunizations Reviewed age appropirate screenings. Assessment & Plan (02/23/2021 9:41 PM DIE PRESSER): Encouraged healthy lifestyle, good nutrition and exercise. [...] screening Assessment & Plan (02/23/2021 9:42 PM DIE PRESSER): Patient denies colon cancer screening. Reviewed importance of screening. Pt voiced understanding. Assessment & Plan (11/22/2019 2:15 PM CDT): Reviewed importance of screening. Pt voiced understanding. Diabetes mellitus screening 03/26/2019 02/04/2021 Assessment & Plan (11/22/2019 2:14 PM CDT): Check labs Assessment & Plan (03/26/2019 10:41 PM DIE PRESSER): Check labs Lipid screening 03/26/2019 03/24/2022 Assessment & Plan (11/22/2021 7:03 PM CDT): Check labs Assessment & Plan (11/22/2019 2:14 PM CDT): Check labs Assessment & Plan (03/26/2019 10:41 PM DIE PRESSER): Check labs BMI 40.0-44.9, adult 03/15/2019 021 Assessment & Plan (11/22/2019 2:14 PM CDT): Obesity is unchanged. Discussed the patient's BMI. The BMI is above average. BMI management plan is completed. BMI Follow-up includes: nutrition counseling, exercise counseling and education provided. Assessment & Plan (03/15/2019 2:31 PM DIE PRESSER): Obesity is unchanged. Discussed the patient's BMI. The BMI is above average. BMI management plan is completed. BMI Follow-up includes: nutrition counseling, exercise counseling and education provided. Morbid obesity (CMS/HCC) 03/15/201911/2020 Assessment & Plan (02/04/2021 10:10 AM DIE PRESSER): Obesity is unchanged. Discussed the patient's BMI. [...] provided. Assessment & Plan (03/15/2019 2:31 PM DIE PRESSER): Obesity is unchanged. Discussed the patient's BMI. 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 The test result will be approximately 20% lower when compared to the equimolar-standardized total PSA (Tessy Waban). Comparison of serial PSA results should be [...] SEGURA LAB BLOOD ORDERABLES Final Result [facility] [address] [id number] * Stool DNA - Cologuard (11/18/2021 8:13 AM CDT) Stool DNA - Cologuard Negative Negative [employer] (CLIA #:[id number]) Comment: NEGATIVE TEST RESULT. A negative Cologuard [...] cancer. ??Following a negative Cologuard result, the [place] Cancer Society and U.S. Multi-Society Task Force screening guidelines recommend a Cologuard re-screening interval of 3 years. References: [place] [employer] Guideline for Colorectal Cancer Screening: https://www.cancer.org/cancer/xgaxj-emrnta-jdseyr/ztrxcauiv-hlladblmq-bsprzua/ac s-rec ommendations.html.; Fernando VALLECILLO, Mayuri CR, Darius TorresK, Colorectal Cancer Screening: Recommendations for Physicians and Patients from the U.S. Multi-Society Task Force on Colorectal Cancer Screening , Am J Gastroenterology 2017; 112:1799-7029. TEST DESCRIPTION: Composite algorithmic analysis of stool [...] Corey et al, N Engl J Med 2014;370(14):8727-9874.) Cologuard may produce a false negative or false positive result (no colorectal cancer or precancerous polyp present at colonoscopy follow up). A negative Cologuard test result does not guarantee the absence of CRC or advanced adenoma (pre-cancer). The current Cologuard screening interval is every 3 years. ([place] Cancer Society and U.S. Multi-Society Task Force). Cologuard performance data in a 10,000 patient pivotal study using colonoscopy as the reference method can be accessed at the following location: www.I[employer]/results. Additional description of the Cologuard test process, warnings and precautions can be found at www.cologuard.com. Stool 11/18/2021 8:13 AM CDT 11/19/2021 4:05 PM CDT us Sherrie SEGURA LAB BODY FLUIDS AND STOOLS ORDERABLES Final Result [facility] (CLIA #:[id number]) [address] [place] [address] * Hepatitis panel, acute (07/26/2017 8:01 AM CDT) Hep A IgM NON-REACTI VE NON-REACTI VE [facility] HISTORICAL RESULTS HepBsAg NON-REACTI VE [facility] Hep B core IgM NON-REACTI VE NON-REACTI VE [facility] HISTORICAL RESULTS Hep C Ab NON-REACTI VE NON-REACTI VE [facility] HISTORICAL RESULTS SIGNAL TO CUT-OFF 0.07 <1.00 [facility] HISTORICAL RESULTS 07/26/2017 8:01 AM CDT 07/27/2017 11:00 AM CDT Narrative [facility] HISTORICAL RESULTS - 07/27/2017 10:37 AM CDT 0; 0; 0 FASTING:YES FASTING: YES PERFORMING LAB: [place], [facility] [address] [place], [place] [address] Ulises Meyers D.O., MPH Ousmane Solis MD LAB MICROBIOLOGY - GE NERAL ORDERABLES Final Result [facility] HISTORICAL RESULTS from Last 3 Months or Most Recently Relevant to Health Maintenance Insurance [facility] ADVANTAGE CHOICE PPO Care Teams Security Monitor Relationship Specialty Start Date End Date Sherrie Bolck PA [address] [facility] [address] [place] [address] PCP - General Internal Medicine 03/08/19
--- OUTSIDE RECORDS SUMMARY | 2024-04-26 15:44 | XMS_ITS | Patient Health Summary ---
Author Organization [facility] Address [address] [place] [address] Care Team Providers Care Foreman Or Supervisor And Operator Name Role Phone Sary Solis MD Primary Care Provider +1- [phone] [facility],non-owned Affiliates and Associated Physician Practices is amultiple site organization consisting of ambulatory clinics and hospital sitesin [place], [place], [place] and [place]. This disclosure is being madepursuant to the Care Everywhere program and may not contain all information available regarding this patient. Last updated 17.[facility] [employer] [employer] [facility] Allergies No known active allergies Medications Be [...] Sexual Orientation Not on file Care Teams Foreman Or Supervisor And Operator Relationship Specialty Start Date End Date Sary Solis MD [address] [facility] [address] [place] [id number] PCP - General 10/05/17
--- OUTSIDE RECORDS SUMMARY | 2024-04-26 15:44 | XMS_ITS | Referral Summary ---
Author Organization [facility] [employer] Address [address] [place] [address] Care Team Providers Care Er Medical Technician Name Role Phone Sary Solis MD Primary Care Provider [phone]- [phone] Source Comments [facility],non-owned Affiliates and Associated Physician Practices is amultiple site organization consisting of ambulatory clinics and hospital sitesin [place], [place], [place] and [place]. This disclosure is being madepursuant to the Care Everywhere program and may not contain all information available regarding this patient. Last updated 17.[facility] [employer] Allergies No known active allergies Medications [...] of Treatment Not on file Care Teams Er Medical Technician Relationship Specialty Start Date End Date Sary Solis MD [address] [place] [address] [facility] - General 10/05/17
[2024-04-26 17:13] VITALS: BP 132/74; PULSE 75; RESP 18; O2SAT 98
== END 2024-04-26 17:16 | disposition home or self-care (01) ==
PROVIDERS: Emergency Provider Emergency Medicine; PCP Physician Assistant
DX: S89.91XA Unspecified injury of right lower leg, initial encounter (principal); I10 Essential (primary) hypertension; M17.11 Unilateral primary osteoarthritis, right knee; R93.6 Abnormal findings on diagnostic imaging of limbs; X50.9XXA Other and unspecified overexertion or strenuous movements or postures, initial encounter
CPT/HCPCS: 73564; 73700; 99284

== ENCOUNTER 2024-06-27 09:09 | Outpatient (CLI) | payer OTHER, SELFPAY ==
--- NOTE | ~2024-06-27 | MR_ITS ---
MRI of the right knee Clinical history: Medial meniscus tear Technique: Coronal proton density and proton density-weighted images, sagittal proton-density and T2 fat-sat images, and axial proton-density fat-saturated images were acquired. Findings: Anterior and posterior cruciate ligaments are intact. Medial collateral ligament and the la teral collateral ligament complex are intact. Popliteus tendon is intact. Probable subtle flap tear involving the undersurface of the posterior horn of the medial meniscus. No lateral meniscal tear seen. There is grade IV chondromalacia extensively involving the lateral patellar facet, with focal areas o f subchondral reactive marrow edema and cystic change. Remaining articular cartilage is relatively we ll preserved throughout the knee. Extensor mechanism is intact. Small joint effusion present. No Sunshine's cyst. Impression: Subtle undersurface flap tear of the posterior horn medial meniscus. Advanced chondromalacia patella, as detailed above. Reviewed, dictated and finalized at [facility]. Impression: Subtle undersurface flap tear of the posterior horn medial meniscus. Advanced chondromalacia patella, as detailed above.
== END 2024-06-27 09:10 | disposition home or self-care (01) ==
LOC: MICIMG 09:10
PROVIDERS: PCP Orthopaedic Surgery; Visit Provider Orthopaedic Surgery
DX: S83.241A Other tear of medial meniscus, current injury, right knee, initial encounter (principal); M22.41 Chondromalacia patellae, right knee; X58.XXXA Exposure to other specified factors, initial encounter
CPT/HCPCS: 73721

== ENCOUNTER → 2024-10-16 09:18 | Outpatient (CLI) | payer OTHER, SELFPAY ==
--- NOTE | ~2024-10-16 | XR_ITS ---
XR cervical spine 4-5V 10/16/2024 11:10 Indication: Neck pain. No known injury. Procedure: 7 view cervical spine Comparison: No prior studies for comparison. Findings: There is disc narrowing at C3-4 with hypertrophic changes. There is multilevel uncinate and facet hypertrophy. Lung apices are normal. Odontoid process is normal. No prevertebral soft tissue a bnormality. Lung apices are normal. Impression: 1: Moderate cervical spondylosis most severe at C3-4. Reviewed, dictated and finalized at location A. Impression: 1: Moderate cervical spondylosis most severe at C3-4.
== END ==
PROVIDERS: PCP Physician Assistant; Visit Provider Physician Assistant
DX: M47.892 Other spondylosis, cervical region (principal)
CPT/HCPCS: 72050

== ENCOUNTER 2024-11-10 10:24 | Outpatient (CLI) | payer OTHER, SELFPAY ==
--- OUTSIDE RECORDS SUMMARY | 2024-11-10 10:27 | XMS_ITS | Encounter Summary ---
Author Organization [facility] Address [address] [place] [address] Care Team Providers Care Mr Teacher Name Role Phone Sherrie Block Primary Care Provider [phone]- [phone] Encounter Details Date Type Department Care Team ([facility] st Contact Info) Description 10/18/2024 Results Follow-Up [facility] Family Medicine [address] [place] [address] Sherrie Block PA [address] [place] [address] XR Spine Cervical Complete 4 Or 5 Vw Social History Tobacco Use Types Packs/Day Years Used Date Smoking Tobacco: Never Smokeless Tobacco: Never Alcohol Use Standard Drinks/Week Comments Yes 0 (1 standard drink = 0.6 oz pur e alcohol) AUDIT-C Answer Date Recorded Q1: How often do you have a drink containing alcohol? Never 10/16/2024 Q2: How many drinks containi ng alcohol do you have on a typical day when you are drinking? Patient does not drink Q3: How often do you have si x or more drinks on one occasion? 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
--- OUTSIDE RECORDS SUMMARY | 2024-11-10 10:27 | XMS_ITS | Clinical Summary ---
Author Organization [facility] [employer] Address [address] [place] [address] Care Team Providers Care Central Supply Technician Supervisor Name Role Phone Sary Solis MD Primary Care Provider [phone]- [phone] Source Comments [facility] [employer],non-owned Affiliates and Associated Physician Practices is amultiple site organization consisting of ambulatory clinics and hospital sitesin [place], [place], [place] and [place]. This disclosure is being madepursuant to the Care Everywhere program and may not contain all information available regarding this patient. Last updated 17.[facility] [employer] Allergies No known active allergies Medications * Be aware that medications may not be up to date on this document. Alwaysverify current medications with the patient. No known medications Social History Tobacco Use Types Packs/Day Years Used Date Smoking Tobacco: Never Smokeless Tobacco: Never Alcohol Use Standard Drinks/Week Comments Yes 0 (1 standard drink = 0.6 oz pur e alcohol) Sex and Gender Information Value Date Recorded Sex Assigned at Not on file Legal Sex Male 1:28 PM CDT Gender Identity Not on file [...] VACCINE (1 of 2) 2010 COVID-19 VACCINE (1 - 2023-2 5 season) 2023 DEPRESSION SCREENING 03/29/2024 INFLUENZA VACCINE (#1) 2024 Respiratory Syncytial Virus (RSV) Vaccine Pt: or [...] to complete this topic MENINGOCOCCAL (Group B) VACC INE SHARED DECISION-MAKING Aged Out No longer eligibl e based on patient's age to complete this topic MENINGOCOCCAL GROUPS A/C/Y/W VACCINE Aged Out No longer eligible b ased on patient's age to complete this topic Insurance ANTH Care Teams Central Supply Technician Supervisor Relationship Specialty Start Date End Date Sary Solis MD [address] [place] [address] PCP - General 10/05/17
--- OUTSIDE RECORDS SUMMARY | 2024-11-10 10:27 | XMS_ITS | Clinical Summary ---
Author Organization [facility] [address] [facility] Address [address] [place] [address] Care Team Providers Care Lead Painter Name Role Phone Sherrie Block Primary Care Provider [phone] Allergies No known active allergies Medications magnesium oxide (MAG-OX) 400 mg (241.3 mg elemental magnesium) tabletIndications: Essential hypertension,Morbi d obesity (HCC) Take 1 tablet (400 mg total) by mouth daily 90 tablet 1 11/11/19 24 Active lisinopril-hydroCH LOROthiazide (ZESTORETIC) 20-25 mg per tabletIndications: Essential hypertension Take 1 tablet by mouth daily 90 tablet 2 05/09/19 25 Active rosuvastatin (CRESTOR) 20 mg tabletIndications: Mixed hyperlipidemia Take 1 tablet (20 mg total) by mouth daily 90 tablet 2 05/09/19 25 Active amLODIPine (NORVASC) 5 mg tabletIndications: Essential hypertension Take 1 tablet (5 mg total) by mouth daily 90 tablet 2 05/09/19 25 Active meloxicam (MOBIC) 15 mg tablet Take 1 tablet (15 mg total) by mouth daily No additional NSAIDS (no IBU, motrin or Aleve) 90 tablet 1 11/09/19 25 025 Active meloxicam (MOBIC) 15 mg tablet Take 1 tablet (15 mg total) by mouth daily No additional NSAIDS (no IBU, motrin or Aleve) 30 tablet 1 10/17/19 25 025 Discontin ued(Reord er) Active Problems Problem Noted Date Diagnosed Date Medicare annual wellness visit, initial 11/09/19 25 Chronic neck pain 11/08/2024 Immunity status testing 11/08/2024 BMI 37.0-37.9, adult 10/16/2024 Assessment & Plan (11/08/2024 7:11 AM CDT): Discussed the patient's BMI. The BMI is above average. BMI management plan is completed. BMI Follow-up includes: nutrition counseling, exercise counseling and education provided. Assessment & Plan (10/16/2024 8:30 AM CDT): Discussed the patient's BMI. The BMI is above average. BMI management plan is completed. BMI Follow-up includes: nutrition counseling, exercise counseling and education provided. Colon cancer screening 05/09/2024 Assessment & Plan (05/09/2024 7:40 AM SLAT GRADER): Cologuard order placed to complete in October Morbid obesity 03/11/2023 Assessment & Plan (11/08/2024 7:11 AM CDT): Discussed the patient's BMI. The BMI is above average. BMI management plan is completed. BMI Follow-up includes: nutrition counseling, exercise counseling and education provided. Assessment & Plan (10/16/2024 8:29 AM CDT): Discussed the patient's BMI. The BMI is above average. BMI management plan is completed. BMI Follow-up includes: nutrition counseling, exercise counseling and education provided. Assessment & Plan (11/11/2023 7:20 AM CDT): Discussed the patient's BMI. The BMI is above average. BMI management plan is completed. BMI Follow-up includes: nutrition counseling, exercise counseling and education provided. Assessment & Plan (03/11/2023 9:23 AM SLAT GRADER): Discussed the patient's BMI. The BMI is above average. BMI management plan is completed. BMI Follow-up includes: nutrition counseling, exercise counseling and education provided. Hypomagnesemia 03/11/2023 Assessment & Plan (11/21/2023 9:36 PM CDT): Check labs Assessment & Plan (03/11/2023 11:20 PM SLAT GRADER): Supplement Hyperglycemia 07/19/2022 Assessment & Plan (11/21/2023 9:35 PM CDT): Pre-diabetes/hyperglycemia is a precursor to Dm. Stressed importance of working on diet (decrease your simple sugars and one carbohydrate with each meal) and increase you exercise to achieve weight loss and this will help prevent you from progressing to diabetes. Check labs Assessment & Plan (03/11/2023 11:19 PM SLAT GRADER): Check labs Assessment & Plan (07/19/2022 9:45 PM CDT): Pre-diabetes/hyperglycemia is a precursor to Dm. Stressed importance of working on diet (decrease your simple sugars and one carbohydrate with each meal) and increase you exercise to achieve weight loss and this will help prevent you from progressing to diabetes. Mixed hyperlipidemia 03/24/2022 Assessment & Plan (05/09/2024 7:40 AM SLAT GRADER): Encouraged patient to follow low fat/low chol diet like the Mediterranean diet. Increase good fats in the diet. Increase exercise. Monitor labs as needed. Crestor is controlling lipids well Assessment & Plan (11/21/2023 9:35 PM CDT): Encouraged patient to follow low fat/low chol diet like the Mediterranean diet. Increase good fats in the diet. Increase exercise. Monitor labs as needed. Continue Crestor 20 Assessment & Plan (03/11/2023 11:19 PM SLAT GRADER): Encouraged patient to follow low fat/low chol [...] Crestor Assessment & Plan (03/24/2022 9:44 PM SLAT GRADER): Encouraged patient to follow low fat/low chol [...] re-evaluate Assessment & Plan (03/11/2023 11:18 PM SLAT GRADER): Probably multifactorial. Check labs and followup to re-evaluate Assessment & Plan (07/19/2022 9:45 PM CDT): Probably multifactorial. Check labs and followup to re-evaluate Assessment & Plan (11/22/2021 7:04 PM CDT): Probably multifactorial. Check labs and followup to re-evaluate Essential hypertension 03/15/2019 Assessment & Plan (05/09/2024 7:39 AM SLAT GRADER): Bp is stable/in acceptable range for any co-morbidities. Encouraged to limit sodium intake and exercise for weight control. Continue lisinopril hydrochlorothiazide 20/25 and amlodipine. Assessment & Plan (11/21/2023 9:35 PM CDT): Bp is stable/in acceptable range for any co-morbidities. Encouraged to limit sodium intake and exercise for weight control. Continue lisinopril hydrochlorothiazide 20/25 and amlodipine 5 mg Assessment & Plan (03/11/2023 11:17 PM SLAT GRADER): Bp is stable/in acceptable range for any co-morbidities. Encouraged to limit sodium intake and exercise for weight control. Continue lisinopril hydrochlorothiazide 20/25 amlodipine Assessment & Plan (07/19/2022 9:45 PM CDT): Bp is stable/in acceptable range for any co-morbidities. Encouraged to limit sodium intake and exercise for weight control. Continue lisinopril hydrochlorothiazide and amlodipine Assessment & Plan (03/24/2022 9:33 PM SLAT GRADER): Bp is stable/in acceptable range for any co-morbidities. Encouraged to limit sodium intake and exercise for weight control. Continue lisinopril hydrochlorothiazide 2024 in the a.m. amlodipine 5 mg in the p.m. Assessment & Plan (11/22/2021 7:02 PM CDT): BP is not controlled. Stressed importance of taking medications as prescribed. He is currently on lisinopril hydrochlorothiazide 20/25 He states his home readings have always [...] understanding. Assessment & Plan (02/23/2021 9:41 PM SLAT GRADER): Bp is stable/in acceptable range for any [...] stability Assessment & Plan (03/26/2019 10:40 PM SLAT GRADER): Bp is uncontrolled. Discussed treatment options. Will start with lisinopril/HCTZ. Will need for him to get labs. Provided a location for [place] pay only. Encouraged to limit sodium intake and exercise for weight control. Resolved Problems Problem Noted Date Diagnosed Date Resolved Date BMI 27.0-27.9,adult 10/16/2024 10/29/19 BMI 40.0-44.9, adult 05/09/2024 025 Assessment & Plan (05/09/2024 7:12 AM SLAT GRADER): Discussed the patient's BMI. The BMI is above average. BMI management plan is completed. BMI Follow-up includes: nutrition counseling, exercise counseling and education provided. Annual physical exam 05/09/2024 025 Assessment & Plan (05/09/2024 7:40 AM SLAT GRADER): Encouraged healthy lifestyle, good nutrition and exercise. Encouraged Calcium and Vitamin D and weight bearing exercise for bone health. Reviewed immunizations Reviewed age appropirate screenings. Medicare welcome visit 11/21/202305/09 Assessment & Plan (11/21/2023 9:37 PM CDT): Encouraged healthy lifestyle, good nutrition and exercise. Encouraged Calcium and Vitamin D and weight bearing exercise for bone health. Reviewed immunizations. Reviewed age appropirate screenings. Medicare Wellness Documentation is completed within the chart EKG done today in the office and it was normal Prostate cancer screening 11/21/2023 Assessment & Plan (11/21/2023 9:36 PM CDT): Check PSA Morbid obesity with BMI of 40.0-44.9, adult 03/11/2023 03/11/2023 BMI 40.0-44.9, adult 07/16/2022 023 Assessment & Plan (07/16/2022 12:08 PM CDT): Discussed the patient's BMI. The BMI is above average. BMI management plan is completed. BMI Follow-up includes: nutrition counseling, exercise counseling and education provided. Morbid obesity 07/16/2022 11/08/2024 Assessment & Plan (05/09/2024 7:12 AM SLAT GRADER): Discussed the patient's BMI. The BMI is above average. BMI management plan is completed. BMI Follow-up includes: nutrition counseling, exercise counseling and education provided. Assessment & Plan (11/21/2023 9:35 PM CDT): [...] 35.00-39.99. Assessment & Plan (03/11/2023 11:19 PM SLAT GRADER): Discussed the patient's BMI. The BMI is [...] 11/21/2023 Assessment & Plan (03/24/2022 9:36 PM SLAT GRADER): This is a significant, separately identifiable problem that was evaluated and managed on the same day as the wellness exam Racing heartbeat noted while trying to donate plasma. EKG in the office today revealed prolonged QT interval, otherwise essentially normal. Will plan referral to Cardiology. See prolonged QT interval Prolonged Q-T interval on ECG 03/10/2022 11/21/2023 Assessment & Plan (03/24/2022 9:35 PM SLAT GRADER): This is a significant, separately identifiable problem [...] 021 Assessment & Plan (02/04/2021 10:10 AM SLAT GRADER): Obesity is unchanged. Discussed the patient's BMI. The BMI is above average. BMI management plan is completed. BMI Follow-up includes: nutrition counseling, exercise counseling and education provided. Morbid obesity with BMI of 40.0-44.9, adult 02/04/2021 07/16/2022 Assessment & Plan (03/24/2022 9:34 PM SLAT GRADER): Discussed the patient's BMI. The BMI is above average. BMI management plan is completed. BMI Follow-up includes: nutrition counseling, exercise counseling and education provided. Assessment & Plan (11/22/2021 7:03 PM CDT): Discussed the patient's BMI. The BMI is above average. BMI management plan is completed. BMI Follow-up includes: nutrition counseling, exercise counseling and education provided. Assessment & Plan (02/23/2021 9:42 PM SLAT GRADER): Obesity is unchanged. Discussed the patient's BMI. The BMI is above average. BMI management plan is completed. BMI Follow-up includes: nutrition counseling, exercise counseling and education provided. Annual physical exam 11/22/2019 Assessment & Plan (03/11/2023 11:16 PM SLAT GRADER): Encouraged healthy lifestyle, good nutrition and exercise. Encouraged Calcium and Vitamin D and weight bearing exercise for bone health. Reviewed immunizations Reviewed age appropirate screenings. Assessment & Plan (03/24/2022 9:34 PM SLAT GRADER): Encouraged healthy lifestyle, good nutrition and exercise. Encouraged Calcium and Vitamin D and weight bearing exercise for bone health. Reviewed immunizations Reviewed age appropirate screenings. Assessment & Plan (02/23/2021 9:41 PM SLAT GRADER): Encouraged healthy lifestyle, good nutrition and exercise. [...] screening Assessment & Plan (02/23/2021 9:42 PM SLAT GRADER): Patient denies colon cancer screening. Reviewed importance of screening. Pt voiced understanding. Assessment & Plan (11/22/2019 2:15 PM CDT): Reviewed importance of screening. Pt voiced understanding. Diabetes mellitus screening 03/26/2019 02/04/2021 Assessment & Plan (11/22/2019 2:14 PM CDT): Check labs Assessment & Plan (03/26/2019 10:41 PM SLAT GRADER): Check labs Lipid screening 03/26/2019 03/24/2022 Assessment & Plan (11/22/2021 7:03 PM CDT): Check labs Assessment & Plan (11/22/2019 2:14 PM CDT): Check labs Assessment & Plan (03/26/2019 10:41 PM SLAT GRADER): Check labs BMI 40.0-44.9, adult 03/15/2019 021 Assessment & Plan (11/22/2019 2:14 PM CDT): Obesity is unchanged. Discussed the patient's BMI. The BMI is above average. BMI management plan is completed. BMI Follow-up includes: nutrition counseling, exercise counseling and education provided. Assessment & Plan (03/15/2019 2:31 PM SLAT GRADER): Obesity is unchanged. Discussed the patient's BMI. The BMI is above average. BMI management plan is completed. BMI Follow-up includes: nutrition counseling, exercise counseling and education provided. Morbid obesity (CMS/HCC) 03/15/201911/2020 Assessment & Plan (02/04/2021 10:10 AM SLAT GRADER): Obesity is unchanged. Discussed the patient's BMI. [...] provided. Assessment & Plan (03/15/2019 2:31 PM SLAT GRADER): Obesity is unchanged. Discussed the patient's BMI. The BMI is above average. BMI management plan is completed. BMI Follow-up includes: nutrition counseling, exercise counseling and education provided. Body mass index (BMI) 40.0-44.9, adult 07/26/2017 07/16/2022 Morbid obesity 07/26/2017 07/16/2022 Encounters Date Type Department Care Team Description 11/08/2024 7:00 AM CDT Office Visit [address] [id number] Sherrie Block PA Medicare annual wellness visit, initial (Primary Dx); Chronic neck pain; Essential hypertension; Mixed hyperlipidemia; Hyperglycemia; Fatigue, unspecified type; Asymptomatic varicose veins of left lower extremity; Immunity status testing; Morbid obesity (HCC); BMI 37.0-37.9, adult 10/18/2024 Results Follow-Up [address] [phone] Sherrie Block PA XR Spine Cervical Complete 4 Or 5 Vw 10/16/2024 8:30 AM CDT Office Visit [address] [place] [phone] Sherrie Block PA Neck pain (Primary Dx); Colon cancer screening; BMI 37.0-37.9, adult; Morbid obesity (HCC) from Last 3 Months Immunizations Immunization Administration Dates Next Due Influenza, Quadrivalent, Rec ombinant, Egg Free, Preservative Free, Intramuscular 01/22/2023,04/09/2022 Influenza, Trivalent, Preser vative Free, Intramuscular 01/04/2024 Influenza, Unspecified 12/28/2022,2021(Deferred: Patient Refused),03/10/2022(Deferred: Patient Refused),12/29/2021,04/30/2021(Deferre d: Patient Refused),03/15/2019(Deferred: Patient Refused),12/27/2017(Deferred: Patient Refused) Tdap 11/22/2019 ZOSTER Recombinant 08/25/2024,06/08/2024 Surgical History Surgery Date Site/Laterality Comments DISCECTOMY [...] Not Answered Alcohol Use Standard Drinks/Week Comments Not Currently 0 (1 standard drink = 0.6 oz pur e alcohol) PHQ-2 Answer Date Recorded PHQ-2 Total Score (If total score is 3 or more points, staff should administer the PHQ-9) 0 11/08/2024 AUDIT-C Answer Date Recorded Q1: How often do you have a drink containing alcohol? Never 11/08/2024 Q2: How many drinks containi ng alcohol do you have on a typical day when you are drinking? Patient does not drink Q3: How often do you have si x or more drinks on one occasion? Never 11/08/2024 Sex and Gender Information Value Date Recorded Sex Assigned at Not on file Legal Sex Male 6:42 PM SLAT GRADER Gender Identity Not on file Sexual Orientation Not on file Occupation Industry Job Start Date Job End Date [employer] Not on file Not on file Not on file retired Not on file Not on file Not on file Obstetrics History Last Filed Vital Signs Vital Sign Reading Time Taken Comments Blood Pressure 102/68 11/08/2024 7:10 AM CDT Pulse 83 11/08/2024 7:10 AM CDT Temperature 36.7 C (98.1 F) 11/08/2024 7:10 AM CDT Respiratory Rate 16 03/10/2022 11:2 3 AM SLAT GRADER Oxygen Saturation 95% 11/08/2024 7:10 AM CDT Inhaled Oxygen Concentration - - Weight 117.4 kg (258 lb 14.4 oz) 11/08/2024 7:10 AM CDT Height 177.8 cm (5' 10) 11/08/2024 7:10 AM CDT Body Mass Index 37.15 11/08/2024 7:10 AM CDT Plan of Treatment Health Maintenance Due Date Last Done Comments Hepatitis B Screening 1978 Covid-19 Vaccine ( season) 2023 01/22/2023, 04/09/2022, 05/03/2021, Additional history exists Colon Cancer Screening-DNA Stool 11/18/2024 11/18/2021 Influenza Vaccine (#1) 2024 , 01/22/2023, 12/28/2022, Additional history exists Depression Screening 11/08/2025 11/08/2024, 10/16/2024, 05/09/2024, Additional history exists Regular Well Visit/Exam 18-64 11/08/2025 11/08/2024, 05/09/2024, 11/11/2023, Additional history exists Prostate Cancer Screening-PSA 05/01/2026 05/01/2024, 11/27/2021 DTaP/Tdap/Td Vaccine (2 - Td or Tdap) 11/21/2029 11/22/2019 Hepatitis C Screening Completed 07/26/2017 Colon Cancer Screening-FIT Discontinued 11/18/2021 Zoster Vaccine Completed 08/25/2024, 06/08/2024 Pneumococcal vaccine <65 Aged Out No longer eligible based on patient's age to complete this topic Procedures Procedure Name Priority Date/Time Associated Diagnosis Comments XR SPINE CERVICAL COMPLETE 4 OR 5 VW Schedule Routine, Read Routine (OP Routine) 10/16/2024 8:44 AM CDT Neck pain PSA SCREEN Routine 05/01/2024 7:49 AM SLAT GRADER Prostate cancer screening STOOL DNA COLOGUARD Routine 11/18/2021 8:13 AM CDT Colon cancer screening HEPATITIS PANEL, ACUTE Routine 07/26/2017 8:01 AM CDT from Last 3 Months or Most Recently Relevant to Health Maintenance Results * (ABNORMAL) XR Spine Cervical Complete 4 Or 5 Vw (10/16/2024 8:44 AM CDT) Anatomical Region Laterality Modality Spine N/A Radiographic Sapphire ging Impressions 10/16/2024 8:44 AM CDT There is disc narrowing at C3-4 with hypertrophic changes. There is multilevel incinate and facet hypertrophy. Lung apices are normal. Ondontoid process is normal. No prevertebral soft tissue abnormality. Lung apices are normal. Impression: 1.Moderate cervical spondylosis most severe at C3-4 Sherrie SEGURA IMG XR PROCEDURES Final Re sult * PSA screen (05/01/2024 7:49 AM SLAT GRADER) Pathologist [facility] PSA 0.32 < OR = 4.00 ng/mL [facility] Comment: The total PSA value from this assay system is standardized against the WHO standard. The test result will be approximately 20% lower when compared to the equimolar-standardized total PSA (Tessy [place]). Comparison of serial PSA results should be interpreted with this fact in mind. This test was performed using the Siemens chemiluminescent method. Values obtained from different assay methods cannot be used interchangeably. PSA levels, regardless of value, should not be interpreted as absolute evidence of the presence or absence of disease. Blood 05/01/2024 7:49 AM SLAT GRADER 05/01/2024 7:50 AM SLAT GRADER Narrative [facility] - 05/02/2024 3:07 AM SLAT GRADER FASTING:YES FASTING: YES Sherrie SEGURA LAB BLOOD ORDERABLES Final Result [facility] [address] [place] [address] * Stool DNA - Cologuard (11/18/2021 8:13 AM CDT) Pathologist [facility] Stool DNA - Cologuard Negative Negative [facility] (CLIA #:[id number]) Comment: NEGATIVE TEST RESULT. A negative Cologuard result indicates a low likelihood that a colorectal cancer (CRC) or advanced adenoma (adenomatous polyps with more advanced pre-malignant features) is present. The chance that a person with a negative Cologuard test has a colorectal cancer is less than 1 in 1500 (negative predictive value >99.9%) or has an advanced adenoma is less than 5.3% (negative predictive value 94.7%). These data are based on a prospective cross-sectional study of 10,000 individuals at average risk for colorectal cancer who were screened with both Cologuard and colonoscopy. (Belinda Corey et al, N Engl J Med 2014;370(14):4807-1315) The normal value (reference range) for this assay is negative. COLOGUARD RE-SCREENING RECOMMENDATION: Periodic colorectal cancer screening is an important part of preventive healthcare for asymptomatic individuals at average risk for colorectal cancer. Following a negative Cologuard result, the [place] Cancer Society and U.S. Multi-Society Task Force screening guidelines recommend a Cologuard re-screening interval of 3 years. References: [place] [employer] Guideline for Colorectal Cancer Screening: https://www.cancer.org/cancer/tkaxr-tgcsvc-hazwgx/qlvxotpml-flcqjayou-qgkodyo/ac s-rec ommendations.html.; Fernando VALLECILLO, Mayuri AGARWAL, Darius TorresK, Colorectal Cancer Screening: Recommendations for Physicians and Patients from the U.S. Multi-Society Task Force on Colorectal Cancer Screening , Am J Gastroenterology 2017; 112:8496-0719. TEST DESCRIPTION: Composite algorithmic analysis of stool DNA-biomarkers with hemoglobin immunoassay. Quantitative values of individual biomarkers are not [...] (Belinda Hendricks al, N Engl J Med 2014;370(14):8089-2060.) Cologuard may produce a false negative or false positive result (no colorectal cancer or precancerous polyp present at colonoscopy follow up). A negative Cologuard test result does not guarantee the absence of CRC or advanced adenoma (pre-cancer). The current Cologuard screening interval is every 3 years. ([place] [employer] and U.S. Multi-Society Task Force). Cologuard performance data in a 10,000 patient pivotal study using colonoscopy as the reference method can be accessed at the following location: www.[employer]/results. Additional description of the Cologuard test process, warnings and precautions can be found at www.[employer]ologKang [employer]. Stool 11/18/2021 8:13 AM CDT 11/19/2021 4:05 PM CDT Sherrie SEGURA LAB BODY FLUIDS AND STOOLS ORDERABLES Final Result [facility] (CLIA #:[id number]) [address] [address] * Hepatitis panel, acute (07/26/2017 8:01 AM CDT) Hep A IgM NON-REACTI VE NON-REACTI VE [facility] RES[facility] HepBsAg NON-REACTI VE NON-REACTI VE [facility] Hep B core IgM NON-REACTI VE NON-REACTI VE [facility] Hep C Ab NON-REACTI VE NON-REACTI VE [facility] SIGNAL TO CUT-OFF 0.07 <1.00 [facility] RES[facility] 07/26/2017 8:01 AM CDT 07/27/2017 11:00 AM CDT Narrative [facility] - 07/27/2017 10:37 AM CDT 0; 0; 0 FASTING:YES FASTING: YES PERFORMING LAB: [place], [facility] [address] [place] [address] Ulises Meyers D.O., MPH Ousmane Solis MD LAB MICROBIOLOGY - GE NERAL ORDERABLES Final Result [facility] RESULTS from Last 3 Months or Most Recently Relevant to Health Maintenance Insurance [facility] [employer] PPO Care Teams Lead Painter Relationship Specialty Start Date End Date Sherrie Block PA [address] [place] [address] PCP - General Internal Medicine 03/08/19
--- NOTE | 2024-11-10 10:30 | ECG_ITS ---
Test Date: 2024-11-10 10:45:48 Measurements Intervals [place] Rate: 91 P: 17 [place]: 161 QRS: 1 QRSD: 93 T: 29 QT: 357 QTc: 440 Interpretive Statements SINUS RHYTHM DELAYED PRECORDIAL R/S TRANSITION BASELINE ARTIFACT- I, II, III, AVR BORDERLINE ECG No previous ECG available for comparison Electronically Signed On 11-10-2024 10:47:21 CDT by Luis A Chase D.O.
[2024-11-10 11:11] LABS: Anion Gap 6 mmol/L (4-12); Blood Urea Nitrogen 14 mg/dL (9-20); Calcium 8.9 mg/dL (8.4-10.2); Carbon Dioxide 26 mmol/L (22-30); Chloride 102 mmol/L (98-107); Estimated Glomerular Filt Rate > 60; Glucose 85 mg/dL (65-110); Potassium 4.3 mmol/L (3.4-5.0); Sodium 134 mmol/L (137-145)
== END 2024-11-10 10:25 | disposition home or self-care (01) ==
PROVIDERS: Anesthesiology; PCP Physician Assistant; Visit Provider Orthopaedic Surgery
DX: Z01.818 Encounter for other preprocedural examination (principal); R94.31 Abnormal electrocardiogram [ECG] [EKG]; I10 Essential (primary) hypertension
CPT/HCPCS: 36415; 80048; 93005

== ENCOUNTER 2024-11-20 00:35 | Day surgery (SDC) | payer OTHER, SELFPAY ==
[2024-11-08 13:38] VITALS: BMI 36.3
--- NOTE | 2024-11-08 13:44 | PC.NURSE ---
Report to the Outpatient Waiting Room, entrance under the green pavilion located off [facility], at time _0600_ on date _11/20/24 Planned Procedure Time: __0730_.? Time changes happen often and if your time is changed the preop area will call you the afternoon before. - You and your visitor will be asked to self-screen and do not enter if you have any COVID symptoms. Please call surgeon if you need to reschedule. - A mask is optional within the hospital at this time. Patients may have clear liquids (water, carbonated beverages, clear teas, apple juice) until 3 hours prior to surgery with a maximum of 20 ounces. - No food from midnight until time of surgery and no smoking, or chewing tobacco (or any form of nicotine). No chewing gum, candy or mints. - Infants may have breast milk until 4 hours before surgery, formula 6 hours prior to surgery. - Children will be allowed to drink immediately following surgery.? If applicable, please bring a bottle or sippy cup to assist with drinking. Juice, water, soda, and popsicles are readily available.? For infants on formula, please bring formula the day of surgery.? Pacifiers are allowed. Take only the following medications with a SIP of water on the morning of surgery: ___AMLODIPINE DO NOT STOP ANY OF YOUR OTHER PRESCRIPTION MEDICATIONS PRIOR TO SURGERY EXCEPT THE FOLLOWING Hold all vitamins and supplements for 3 days per anesthesiologist. Medications to discontinue per physician Date to take last dose Please no make-up, nail german, hairspray, perfume, deodorant, or body powder the day of surgery.? No jewelry (including any body piercings) or valuables the day of surgery, leave them at home.? Please take a shower or bath the night before, or the morning of, surgery with an antibacterial soap.? Wear comfortable, loose fitting clothing.? Children are encouraged to wear pajamas. - Jewelry must be removed prior to entering the operating room.? Rings and piercings that are not removed may be cut off. - The hospital will not accept responsibility for valuables.? - Please leave all valuables, including medications, at home the day of surgery. If you are going home after surgery, a licensed light truck driver must drive you home.? - NO public transportation without another adult if you receive anesthesia. - We recommend that an adult stay with you for 24 hours following discharge. - We also recommend that you do not drive, make important decision, drink alcoholic beverages, or take any drugs that were not prescribed by your health care provider for at least 24 hours after your discharge time. For Pediatric surgeries, we recommend two adults accompany the child home. Follow any additional instructions given to you from your surgeon. Telephone instructions given to _[place] and asked if any additional questions and then verbalized understanding. Patient advised to call surgeon office or pre surgery nurse liaison [phone] if any additional questions.
--- NOTE | 2024-11-16 14:23 | P.HP_ITS ---
H&P: HPI History of Present Illness Date/Time: 11/16/24 14:23 Chief Complaint: right knee pain Narrative: 64-year-old with right knee pain from workplace injury. Patient states in March 2024 he squatted or kneel down. As he got up he felt a pop in the right knee. Pain and swelling over the medial and anterior aspect of the knee. Catching and locking of the knee. He has had cortisone injections, bracing, therapy and continues to have pain and limitations with activity. Review of Systems Constitutional: Constitutional: Reports no additional constitutional complaints Eyes: Eyes: Reports no additional eye complaints ENT: Reports system reviewed and no additional complaints, except as documented Cardiovascular: Cardiovascular: Reports no additional cardiovascular complaints Respiratory: Respiratory: Reports no additional respiratory complaints Gastrointestinal: Gastrointestinal: Reports no additional gastrointestinal complaints Musculoskeletal: Musculoskeletal: Reports no additional musculoskeletal complaints Neurologic: Reports system reviewed and no additional complaints, except as documented Psychiatric: Psychiatric: Reports no additional psychiatric complaints Endocrine: Endocrine: Reports no additional endocrine complaints Hematologic/Lymphatic: Hematologic/Lymphatic: Reports no additional hematologic/lymphatic complaints Allergic/Immunologic: Allergic/Immunologic: Reports no additional allergic/immunologic complaints [facility] Past Medical History Medical History Acute medial meniscus tear of right knee Synovitis of right knee Chondromalacia, right knee HTN (hypertension) Surgical History Surgical History H/O discectomy No pertinent past surgical history Family History Family History Unknown Hypertension Social History Social History Social History: caffeine use Smoking status: Never smoker Alcohol intake: former Drinks per week: 5 Substance use: never Living arrangements: with family 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- [employer] Gender identity (if verbalized by the patient): Male Meds Home Medications and Allergies Home Medications ?Medication ?Instructions ?Recorded ?Confirmed ?Type rosuvastatin 20 mg PO DAILY 05/09/2410/27 History amlodipine 5 mg tablet 5 mg PO DAILY 11/08/2411/08 History lisinopril 20 1 tablet PO DAILY 11/08/24 0 11/08/24 History mg-hydrochlorothiazide 25 mg tablet magnesium oxide 400 mg (241.3 mg 400 mg PO DAILY 11/0811/08/24 History magnesium) tablet meloxicam 15 mg tablet 15 mg PO DAILY 11/08/2410/27 History Allergies Allergy/AdvReac Type Severity Reaction Status Date / Time No Known Allergies Allergy Verified 11/08/24 13:33 Exam Const: General: healthy appearing; No in distress or confusion Orientation/consciousness: oriented to person, oriented to place, oriented to time and No confusion HENMT: Head: normal to inspection, normocephalic and atraumatic Eyes: Conjunctivae: conjunctivae normal Sclera: sclerae normal Neck: Neck: supple and nontender Resp: Effort & Inspection: normal respiratory effort and no audible wheezes Cardio: Rate: regular rate Rhythm: regular rhythm Skin: General skin exam: no rashes or lesions noted Neuro: General: oriented to person, oriented to place, oriented to time and No confusion Extrem: Right upper extremity: normal to inspection Left upper extremity: normal to inspection Right lower extremity: hip/thigh Details: normal ROM; no tenderness, knee Details: tenderness (anterior and medial joint line ) Location: of the medial joint line (moderate ) and of the pre-patellar area (moderate ), swelling (peripatellar and medial joint ), abnormal ROM (active range of motion -10 degrees extension, 110 degrees flexion) Details: pain with active ROM during Details: in extension and in flexion, knee ligament exam normal Details: anterior drawer test normal, posterior drawer test normal, valgus stress test normal and Wally?s test normal, knee ligament exam abnormal Details: varus stress test normal (painful medial ) and Cindi's Test Details: positive medially and foot Details: normal capillary refill, toes with normal ROM, vascular exam Details: dorsalis pedis pulse present and motor-sensory exam Details: light-touch normal; no tenderness; no edema Left lower extremity: normal to inspection, normal capillary refill and knee Details: normal ROM (Active extension 5, flexion 130) and knee ligament exam normal; no tenderness Psych: Affect: normal affect Assessment and Plan Assessment and plan (1) Chondromalacia, right knee: Code(s): M94.261 - Chondromalacia, right knee Status: Acute (2) Synovitis of right knee: Code(s): M65.961 - Unspecified synovitis and tenosynovitis, right lower leg Status: Acute (3) Acute medial meniscus tear of right knee: Qualifiers: Encounter type: subsequent encounter Qualified Code(s): S83.241D - Other tear of medial meniscus, current injury, right knee, subsequent encounter Code(s): S83.241A - Other tear of medial meniscus, current injury, right knee, initial encounter Status: Acute Assessment and Plan: MRI reviewed with the patient. Right knee moderate to severe patella chondromalacia with synovitis and knee effusion. Medial meniscus tear. Condition made significantly worse with the workplace injury as described. Now with permanent changes on MRI including chondromalacia and meniscus tear. Has failed treatment to date including therapy, exercises, knee brace, cortisone injection. He has been unable to return to work and is unable to perform his normal work activity including climbing, squatting, twisting. Discussed indicated surgical treatment. Patient would like to proceed. Plan Discussed nonoperative and operative treatment options with the patient. Risks and benefits of each as well as alternatives were reviewed. All of the patient' s questions were answered. The risks of surgery reviewed including but not limited to: Neurovascular damage, wound complication, infection, blood clot, pulmonary embolus, stroke, myocardial infarction, and anesthetic risks up to and including . Continued pain and possible dysfunction were explained. Specific risks of the procedure including later recurrence of deformity. No guarantees were offered. If hardware used, discussed risk of failure/ breakage and possible need for removal. If complications occur, the patient understands the need for further treatment, possible further surgery. Patient verbalizes understanding and wishes to proceed. PLAN: Right knee arthroscopy with debridement, partial meniscectomy, chondroplasty, synovectomy, proceed as indicated.
[2024-11-20] VITALS (7 sets, daily range): BP systolic 118–149; BP diastolic 72–97; PULSE 74–82; RESP 12–18; TEMP 36.2; O2SAT 96–100
[2024-11-20] MEDS: ACETAMINOPHEN 500 MG TABLET 1000 MG PO (06:18)
[2024-11-20] MEDS: KETOROLAC 15 MG/ML VIAL (*BKC) IV PUSH (06:22)
[2024-11-20] MEDS: LACTATED RINGERS 1,000 ML 30 ML IV CONT ×2 (06:30→08:30)
--- NOTE | 2024-11-20 07:13 | P.PNAN_ITS ---
Anes - Initial Pre Proc Eval Procedure: Operation Date: 11/20/24 07:30 Proposed Procedures p Right Knee Arthroscopy, Debride Meniscus, Synovectomy, Chondroplasty, Proceed As Indicated - Darnell De León MD Date/Time: 11/20/24 07:13 Surgeon: Darnell De León MD Pre Op Diagnosis: right knee pain,meniscus tear,chondromylacia,synov Patient Data Age: 64 Gender: M Height: 1.8 m Weight: 116 kg Last Vital Signs Temp 36.2 C L 11/20/24 06:03 Pulse 76 11/20/24 06:03 Resp 18 11/20/24 06:03 BP 118/72 11/20/24 06:03 Pulse Ox 100 11/20/24 06:03 O2 Del Method Room Air 11/20/24 06:03 Allergies Allergy/AdvReac Type Severity Reaction Status Date / Time No Known Allergies Allergy Verified 11/20/24 06:06 Home Medications ?Medication ?Instructions ?Recorded ?Confirmed ?Type rosuvastatin 20 mg PO DAILY 05/09/2410/28 History amlodipine 5 mg tablet 5 mg PO DAILY 11/08/2411/20 History lisinopril 20 1 tablet PO DAILY 11/08/24 0 11/20/24 History mg-hydrochlorothiazide 25 mg tablet magnesium oxide 400 mg (241.3 mg 400 mg PO DAILY 11/0811/20/24 History magnesium) tablet meloxicam 15 mg tablet 15 mg PO DAILY 11/08/2410/28 History Patient hx anesthesia problems: none Family hx anesthesia problems: none Results Review: All pre-operative results and documents have been reviewed as part of the pre- operative evaluation. 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 Informed Consent: The patient's anesthetic plan and its attendant risks and benefits were discussed with the patient/family/POA. Questions were solicited and answers provided to the satisfaction of the patient/family/POA.
--- NOTE | 2024-11-20 07:21 | WPDHPUPDATE1 ---
History and Physical Update Update Date/Time: 11/20/24 07:21 History and Physical has been reviewed, including an updated exam of the patient. There are NO changes in the patient's condition. Risks, benefits, and alternatives have been discussed and questions answered. Patient agrees to proceed with procedure.
[2024-11-20] MEDS: ceFAZolin 2 GM in SODIUM CHLORIDE 0.9% IV 50 ML 100 ML IVPB (07:28)
[2024-11-20] MEDS: BUPIVACAINE/EPINEPHRINE 0.5% 50 ML VIAL 30 ML INFILTRATE (07:28)
--- NOTE | 2024-11-20 08:36 | W.PM.PROC2 ---
Procedure Note - Detailed Date of Procedure 11/20/24 Pre-op Diagnosis right knee pain,meniscus tear,chondromalacia,synovitis Post-op Diagnosis Same (Left knee medial meniscus tear, chondromalacia medial femoral condyle and patellofemoral joint, anterior synovitis extending medial and lateral gutters) Procedure Performed Right knee arthroscopy with partial medial meniscectomy, extensive (major) synovectomy and chondroplasty of the patellofemoral and medial compartments. Surgeon Darnell De León MD Block Splitter Operator Scrub Anesthesia General Indications 64 year old with right knee pain, catching and locking. MRI demonstrates medial meniscus tear, chondromalacia, synovitis. Has failed conservative treatment with therapy, cortisone injection, activity modification. Presents for operative treatment. Findings Complex tear of the posterior horn medial meniscus. Grade 3 chondromalacia patella articulation and grade 2 chondromalacia of the corresponding femoral trochlea. Grade 2 chondromalacia medial femoral condyle. Lateral meniscus and lateral compartment intact. ACL, PCL intact. Description of Procedure Informed consent given by patient. Operative extremity marked in preoperative holding area. Patient received intravenous antibiotics. Patient brought to operating room and underwent general anesthetic by anesthesia team. Positioned supine on operating room table. Right leg placed into a posterior thigh leg angelo. Foot of the table dropped to 90? and left leg padded out of the field. Time-out performed confirming patient, site of surgery and plan. Left knee prepped and draped in usual sterile surgical fashion using ChloraPrep skin solution. Standard arthroscopic portals made by using an 11 blade knife for the anterior lateral portal 1st. Capsule penetrated bluntly. Camera and inflow started. The above operative findings noted. Intra-articular visualization used to position the anterior medial portal using 22 gauge spinal needle. An 11 blade knife used for the skin and blunt penetration of the capsule. 4.7 millimeter arthroscopic shaver introduced and partial medial meniscectomy of the loose and torn portion performed. Edge of meniscus completed with arthroscopic Wand. Arthroscopic Wand used to perform chondroplasty of the patellofemoral articulation and the medial femoral condyle. There was extensive wear on the femoral trochlea through most of the trochlea. This was debrided with the arthroscopic Wand and the shaver and finished with the Wand. Shaver reintroduced and a synovectomy performed of the anterior fat pad and extensive synovium as well as medial and lateral plica and medial and lateral gutters. The loose hypertrophic synovium which was impinging in the patellofemoral space was excised. Bleeding points coagulated with Wand. Knee inspected, no loose pieces noted. 1 liter of irrigant infused and suctioned out. Arthroscopic cannulas removed. Skin closed with 4 O nylon interrupted suture. Local anesthetic with 0.25% Marcaine. Sterile dressing applied. Patient awoken from anesthesia, extubated and taken to recovery room in stable condition. All sponge needle and instrument counts correct at the end of the case. Implants None Estimated Blood Loss 5 Tourniquet Time Total Tourniquet Time: 0 Drains No Packing No Pathology None sent Complications None Condition Stable Disposition PACU [facility] Billing Surgery - Charge Forward: Surgery Billing ([id number], [id number], [id number])
[2024-11-20] MEDS: oxyCODONE HCL (*CRX) 5 MG TAB IR PO (09:33)
--- NOTE | 2024-11-20 10:01 | SUR.PHASEII ---
1000: PATIENT READY FOR DC. WAITING ON RIDE
== END 2024-11-20 10:45 | disposition home or self-care (01) ==
PROVIDERS: PCP Physician Assistant; Visit Provider Orthopaedic Surgery
PROC: (CPT 29870; principal; 2024-11-20 07:30)
DX: S83.231A Complex tear of medial meniscus, current injury, right knee, initial encounter (principal); M94.261 Chondromalacia, right knee; M65.861 Other synovitis and tenosynovitis, right lower leg; X50.1XXA Overexertion from prolonged static or awkward postures, initial encounter; I10 Essential (primary) hypertension; E66.9 Obesity, unspecified; Z68.35 Body mass index [BMI] 35.0-35.9, adult; Z98.890 Other specified postprocedural states
CPT/HCPCS: 29881; 29876; J0690; A9270; J1100; J1885; J2405; J2704; J3010; J7120